=== PATIENT | female | born 1950 | race Caucasian/White ===

== ENCOUNTER 2017-10-18 04:15 | Inpatient (IN) | payer OTHER ==
[~2017-10-18] VITALS: Ht 152.4 cm; Wt 103.9 kg
[~2017-10-18 04:15] MED LIST: CELEBREX200 M1 PO; COUMADIN 5 MG TA5 MG PO; COZAAR50 M1 PO; DOCUSATE SODIU100 MG PO; FLOMAX(MONOGRA0.4 MG PO; FUROSEMIDE40 MG PO; K-DUR 20MEQ TA20 MEQ PO; MECLIZINE HCL25 MG PO; MULTIVITAMIN1 TAB PO; NEURONTIN300 M1 PO; PERCOCET 325 MG1 TA2 PO; TYLENOL TAB 32325 MG PO; ZOFRAN ODT4 MG PO
--- NOTE | 2017-10-18 11:18 | RADIOLOGY REPORT ---
EXAMINATION: XR HIP, RIGHT CLINICAL INFORMATION: Status post right hip replacement COMPARISON: None TECHNIQUE: Two views of the right hip. FINDINGS: Patient is status post right total hip arthroplasty. Hardware components appear well-seated and in anatomic alignment. No acute fracture is seen. Soft tissue gas is noted lateral to the right hip, along with overlying skin gustavo. IMPRESSION: Status post right total hip arthroplasty with expected postoperative changes.
[2017-10-18 11:53] LABS: ABSOLUTE BASOPHIL COUNT 0 /CUMM (0.0-0.2); ABSOLUTE EOSINOPHIL COUNT 0 /CUMM (0.0-0.7); ABSOLUTE GRANULOCYTE CT 11.6 /CUMM (1.4-6.5); ABSOLUTE LYMPH COUNT 0.7 /CUMM (1.2-3.4); ABSOLUTE MONOCYTE COUNT 0.2 /CUMM (0.10-0.60); BASOPHIL % 0 % (0.0-2.0); EOSINOPHIL % 0.1 % (0-5); HEMATOCRIT 31.2 % (37-47); MEAN CORPUSCULAR HGB 29.6 PG (27.0-31.0); MEAN CORPUSCULAR HGB CONC 33.8 G/DL (33.0-37.0); MEAN CORPUSCULAR VOLUME 87.7 FL (81.0-99.0); MEAN PLATELET VOLUME 7.2 FL (7.4-10.4); PLATELET COUNT 299 /CUMM (130-400); RBC DISTRIBUTION WIDTH 13.3 % (11.5-14.5); RED BLOOD CELL CT 3.56 /CUMM (4.20-5.40); WHITE BLOOD CELL COUNT 12.5 /CUMM (4.8-10.8)
--- NOTE | 2017-10-18 12:20 | Cons- Medical ---
Mirela Salgado 10/18/17 1202: General Information and HPI Consulting Request Date of Consult: 10/18/17 Requested By: Nereyda RIVERA,Edgar Batres Reason for Consult: hypoxia Source of Information: family, old records, EMS Exam Limitations: unable to give history, patient's age History of Present Illness: Patient is a 67-year-old woman with a past medical history significant for hypertension, breast cancer s/p right mastectomy, nephrolithiasis, history of bilateral knee replacement, admitted to the hospital for right hip replacement. Patient was in her usual state of health before the surgery, except for exertional shortness of breath. Also she has been having lower extremity swelling for the last couple of years has been on high dose of Lasix prescribed by her primary care physician. No chest discomfort/ palpitations. No recent fevers or infections. No urinary bowel habit complaints. In the operating room she was found to be difficult respiratory distress, desaturated multiple times to 80s. In the PACU , vehicle monitor technician showed ectopy. At the time of evaluation, patient was lying comfortably in the bed saturating around 92% on 3 L denies any shortness of breath/chest discomfort. Vitals on admission: Temperature 90.8, respiratory rate 20, pulse 68, blood pressure 106/62 saturating around 95-97% on 3 L. Pertinent labs on admission: Leukocytosis, with hypovolemia. right hip xray : Status post right total hip arthroplasty with expected postoperative changes. Allergies/Medications Allergies: Coded Allergies: latex (Intermediate, BLISTERS 12/18/15) Home Med List: Celecoxib (Celebrex) 200 MG CAPSULE 1 CAP PO DAILY PAIN (Reported) Enoxaparin Sodium (Lovenox) 40 MG/0.4 ML SYRINGE 0.4 ML SC DAILY ANTICOAGULATION Furosemide 40 MG TABLET 1-2 TAB PO AD DIURETIC (Reported) Gabapentin (Neurontin) 300 MG CAPSULE 1 CAP PO TID PAIN (Reported) Losartan Potassium (Cozaar) 50 MG TABLET 1 TAB PO DAILY BP (Reported) Meclizine HCl 25 MG TABLET 1 TAB PO TIDPRN VERTIGO (Reported) Multivitamin (Multiple Vitamins) 1 EACH TABLET 1 TAB PO DAILY SUPPLEMENT ( Reported) Oxycodone HCl/Acetaminophen (Percocet 5-325 MG Tablet) 5 MG-325 MG TABLET 1-2 TAB PO Q4-6 PRN PAIN POTASSIUM CHLORIDE (K-Dur) 20 MEQ TAB.ER.PRT 1 TAB PO DAILY SUPPLEMENT ( Reported) Review of Systems Review of Systems Constitutional: Denies: diaphoresis, fever, malaise. EENTM: Denies: blurred vision, double vision, visual changes. Cardiovascular: Denies: chest pain, edema, orthopena. Respiratory: Denies: cough, hemoptysis, orthopnea. GI: Denies: abdominal pain, constipation, diarrhea. Genitourinary: Denies: discharge, dysuria, hematuria. Musculoskeletal: Denies: back pain, gout, joint pain. Past History Medical History Renal: ? KIDNEY STONES Musculoskeletal: KNEE REPLACVEMENT Cancer(s): RT MASTECTOMY Surgical History Surgical History: none Psychosocial History Services at Home: None Exam & Diagnostic Data Last 24 Hrs of Vital Signs/I&O Vital Signs Date Time Temp Pulse Resp B/P B/P Pulse O2 O2 Flow FiO2 Mean Ox Delivery Rate 10/19 0648 98.1 69 18 98/52 96 Nasal 0.5L Cannula 10/19 0000 Nasal 0.5L Cannula 10/18 2209 97.5 80 20 120/70 95 10/18 1613 98.0 81 16 118/70 10/18 1600 94 Nasal 0.5L Cannula 10/18 1510 92 Room Air Room Air 10/18 1452 98.0 81 16 118/70 99 10/18 1347 98.0 68 20 106/62 97 Nasal 3.0L Cannula 10/18 1330 97 Nasal 3.0L Cannula Intake & Output 10/19 1600 10/19 0800 10/19 0000 Intake Total 700 1350 Output Total 200 750 Balance 500 600 Intake, IV 600 750 Intake, Oral 100 600 Number 0 0 Bowel Movements Output, Urine 200 750 Physical Exam General Appearance: drowzy Head: atraumatic, normal appearance Eyes: Right: normal appearance, PERRL, EOMI. Ears, Nose, Throat: normal pharynx, normal ENT inspection Neck: normal inspection, supple Respiratory: normal breath sounds, chest non-tender Cardiovascular: regular rate/rhythm, edema Peripheral Pulses: 4+ carotid (R), 4+ carotid (L) Gastrointestinal: normal bowel sounds, soft Rectal: normal exam Back: normal inspection, normal range of motion Extremities: normal inspection, normal range of motion Last 24 Hrs of Labs/Ananth: Laboratory Tests 10/18/17 1140: Sodium Pending, Potassium Pending, Chloride Pending, Carbon Dioxide Pending, Anion Gap Pending, BUN Pending, Creatinine Pending, BUN/Creatinine Ratio Pending , Troponin I Pending, Znf-D-Hssjfavtayb Pept Pending, CBC w Diff MAN DIFF ORDERED, RBC 3.56 L, MCV 87.7, MCH 29.6, RDW 13.3, MPV 7.2 L, Gran % 93.0 H, Lymphocytes % 5.6 L, Monocytes % 1.3 L, Eosinophils % 0.1, Basophils % 0, Absolute Granulocytes 11.6 H, Segmented Neutrophils Pending, Absolute Lymphocytes 0.7 L, Absolute Monocytes 0.2, Absolute Eosinophils 0, Absolute Basophils 0, PUBS MCHC 33.8 Assessment/Plan Assessment/Plan Patient is a 67-year-old woman with a past medical history significant for hypertension, breast cancer s/p right mastectomy, nephrolithiasis, history of bilateral knee replacement, admitted to the hospital for right hip replacement. In the operating room she was found to be difficult respiratory distress, desaturated multiple times to 80s. Temperature 90.8, respiratory rate 20, pulse 68, blood pressure 106/62 saturating around 95-97% on 3 L. Pertinent labs on admission: Leukocytosis, with hypovolemia. right hip xray : Status post right total hip arthroplasty with expected postoperative changes First set of troponin negative, EKG done showed T wave changes/flattening in the anterior leads as compared to the EKG done in August 2017 Problem list: 1. Acute hypoxia (Rule out pulmonary embolism) 2. Hypokalemia 3. Lower extremity edema. 4. Right hip arthritis status post replacement post a day: 0 5. History of hypertension. Plan Acute hypoxia (Rule out pulmonary embolism) * Admitted to telemetry floor * CTA chest to rule out pulmonary embolism. * Obtain pulmonology consult * Do serial troponin EKG to rule out any underlying ACS * Obtain echocardiogram * Obtain cardiology consult 2. Lower extremity edema(r/o CHF ) * Obtain echocardiogram. * Continue lasix. * Watch for any arrhythmias. If patient continues to have multiple episodes of ectopy/PVCs on monitor. 3. Right hip arthritis status post replacement post a day: 0 * Continue management as per surgical team * Adequate pain control. 4. History of hypertension * Continue home medications. 5. Hypokalemia * Repeat and replace electrolytes. DVT prophylaxis: * Subcutaneous Lovenox. Pt is FC. Consult Acknowledgment - Thank you for your consult request. Donnie Parks MD 10/18/170: Assessment/Plan Consult Acknowledgment - Thank you for your consult request. Attending MD Review Statement Attending Statement Attending MD Statement: examined this patient, discuss w/resident/PA/ASSEMBLY ADJUSTER, agreed w/resident/PA/ASSEMBLY ADJUSTER, reviewed EMR data (avail)
[2017-10-18 13:47] VITALS: BP 106/62
[2017-10-18] MEDS ORDERED: PERCOCET 5-3251 EACH PO (13:53)
[2017-10-18] MEDS ORDERED: LOVENOX40 MG/0.1 SC (13:53)
--- NOTE | 2017-10-18 13:58 | Patient Discharge Instructions ---
Discharge Instructions General Discharge Information You were seen/treated for: Right hip pain related to unilateral primary osteoarthritis You had these procedures: Right total hip replacement Watch for these problems: Increasing pain despite the use of pain medication Increasing redness, warmth or swelling Drainage of any type from incision Inability to bear weight on operative leg Persistent nausea and vomiting Fever greater than 101.5 degrees Do not soak the wound: Yes No bath, but you may shower: Yes Other wound care: Please keep wound clean and dry. No ointments or lotions of any type on or near incision at any time. No exceptions. Your dressing will be changed by your nurse on the second day after your surgery. Daily dry dressing changes are recommended each day thereafter. Do not soak your wound in a bath at any time until otherwise indicated by your surgeon. You may shower, please dry wound immediately after shower with a clean towel. Special Instructions: Posterior Hip Precautions: No bending greater than 90 degrees at waist. Do not cross your right leg over your left leg. Do not internally rotate your right leg. Abduction pillow when laying in bed. These precautions are to remain in place until otherwise indicated by Dr. Dawn. Patient should follow-up with cardiology as an outpatient for CRISSY with agitated saline contrast injected via the left antecubital or a cardiac MRI for further assessment of the shunt. Diet Continue normal diet: Yes Recommended Diet: Regular Activity Full Activity/No Limits: No Activity Self Limited: Yes Pounds, do NOT lift more than: 10 Acute Coronary Syndrome Inclusion Criteria At DC or during hospital stay patient has or had the following: ACS DIAGNOSIS No Discharge Core Measures Meds if any: Prescribed or Continued at Discharge Meds if any: NOT Prescribed or Continued at Discharge Congestive Heart Failure Inclusion Criteria At DC or during hospital stay patient has or had the following: CHF DIAGNOSIS No Discharge Core Measures Meds if any: Prescribed or Continued at Discharge Meds if any: NOT Prescribed or Continued at Discharge Cerebrovascular accident Inclusion Criteria At DC or during hospital stay patient has or had the following: CVA/TIA Diagnosis No Discharge Core Measures Meds if any: Prescribed or Continued at Discharge Meds if any: NOT Prescribed or Continued at Discharge Venous thromboembolism Inclusion Criteria VTE Diagnosis No VTE Type NONE VTE Confirmed by (Test) NONE Discharge Core Measures - Per Current guidelines, there needs to be overlap - treatment for the first 5 days of Warfarin therapy. - If discharged on Warfarin prior to 5 days of - overlap therapy, the patient will need to be - assessed for post discharge needs including - *Post discharge parental anticoagulation - *Warfarin and/or parental anticoagulation education - *Follow up date to check INR post discharge At least 5 days overlap therapy as Inpatient No Meds if any: Prescribed or Continued at Discharge Note: Overlap Therapy is Warfarin and Anticoagulant Meds if any: NOT Prescribed or Continued at Discharge
--- NOTE | 2017-10-18 14:00 | Surgical Discharge Summary ---
Visit Information Visit Dates Admission Date: 10/18/17 Discharge Date: 10/21/17 History of Present Illness Chief Complaint: Right hip pain related to unilateral primary osteoarthritis Medical History Renal: ? KIDNEY STONES Musculoskeletal: KNEE REPLACVEMENT Cancer(s): RT MASTECTOMY History of MRSA: No History of VRE: No History of CDIFF: No Influenza Vaccine: 07/23/13 Surgical History Pertinent Surgical History: N Psychosocial History Who Do You Live With? Daughter Services at Home: None What is Your Primary Language? Mauritanian Review of Systems: See H&P Hospital Course Course Attending Physician: Nereyda RIVERA,Edgar Batres Primary Care Physician: Gavin Ramírez MD Hospital Course: Patient was admitted to the hospital for an elective total joint replacement. The intra-operative o2 saturation fluctuated between 77-100, post operatively the patient underwent lab work and imaging which proved to be negative for a fat embolis and a pulmonary embolism. The patient was placed on a telemetry unit for further monitoring post operatively and was evaluated by medical services and pulmonolgy. she was found to have acute blood loss anemia and was transfused 1unit of prbc with appropriate response. From a surgica recovery standpoint, her diet was advanced and tolerated, and the she voided spontaneously. She was evaluated and treated by physical therapy. At the time of hospital discharge, her vital signs were stable, neurovascular status was intact, and her pain was controlled with the use of oral pain medications. Complications: acute blood loss anemia, post op hypoxia Allergies: Coded Allergies: latex (Intermediate, BLISTERS 12/18/15) Disposition Summary Disposition Principal Diagnosis: Right hip unilateral primary osteoarthritis Additional Diagnosis: acute blood loss anemia post op hypoxia Discharge Disposition: SNF Discharge Instructions General Discharge Information Code Status: Full Code Patient's Diet: Regular, advance as tolerated Patient's Activity: WBAT, posterior hip precautions Follow-Up Instructions/Appts: Follow up with Dr. Dawn in 2 weeks from date of surgery follow up with Dr Troncoso for further testing for possible vascular/cardiac shunt Medications at Discharge Discharge Medications: Continue taking these medications: Furosemide (Furosemide) 40 MG TABLET 1-2 Tablet ORAL As Directed Qty = 90 Comments: DOCUMENTED PER CMR DURING PRE-SX INTERVIEW - 2 TABS PO ON MON, WED, FRI 1 TAB PO ON TU, THURS, SAT, SUN LAST GIVEN: 04/25/15 @ 1000 POTASSIUM CHLORIDE (K-Dur) 20 MEQ TAB.ER.PRT 1 Tablet ORAL DAILY Qty = 90 Comments: DOCUMENTED PER CMR DURING PRE-SX INTERVIEW LAST GIVEN: 04/25/15 @ 1000 Multivitamin (Multiple Vitamins) 1 EACH TABLET 1 Tablet ORAL DAILY Comments: DOCUMENTED PER CMR DURING PRE-SX INTERVIEW NOT GIVEN IN HOSPITAL Meclizine HCl (Meclizine HCl) 25 MG TABLET 1 Tablet ORAL THREE TIMES A DAY NEEDED Losartan Potassium (Cozaar) 50 MG TABLET 1 Tablet ORAL DAILY Celecoxib (Celebrex) 200 MG CAPSULE 1 Capsule ORAL DAILY Gabapentin (Neurontin) 300 MG CAPSULE 1 Capsule ORAL THREE TIMES DAILY Start taking the following new medications: Enoxaparin Sodium (Lovenox) 40 MG/0.4 ML SYRINGE 0.4 Milliliters Inject into fatty tissue DAILY Qty = 21 No Refills Oxycodone HCl/Acetaminophen (Percocet 5-325 MG Tablet) 5 MG-325 MG TABLET 1-2 Tablet ORAL EVERY 4-6 HOURS as needed for PAIN Qty = 36 No Refills
--- NOTE | 2017-10-18 14:04 | Admission Core Measures ---
Acute Coronary Syndrome (CM) ACS Core Measures Acute Coronary Syndrome Diagnosis No Congestive Heart Failure (NEW) CHF Core Measures Congestive Heart Failure Diagnosis No Cerebrovascular Accident (NEW) CVA Core Measures CVA/TIA Diagnosis No Venous Thromboembolism VTE Core Bhargav (View Protocol) VTE Risk Factors Surgery No Mechanical VTE Prophylaxis d/t N/A MechProphylax Ordered No VTE Pharm Prophylaxis d/t NA PharmProphylax ordered Problem List As ranked by this Provider includes Assessment & Plan 1. Unilateral primary osteoarthritis, right hip HOME MEDS Home Med List Celecoxib (Celebrex) 200 MG CAPSULE 1 CAP PO DAILY PAIN (Reported) Enoxaparin Sodium (Lovenox) 40 MG/0.4 ML SYRINGE 0.4 ML SC DAILY ANTICOAGULATION Furosemide 40 MG TABLET 1-2 TAB PO AD DIURETIC (Reported) Gabapentin (Neurontin) 300 MG CAPSULE 1 CAP PO TID PAIN (Reported) Losartan Potassium (Cozaar) 50 MG TABLET 1 TAB PO DAILY BP (Reported) Meclizine HCl 25 MG TABLET 1 TAB PO TIDPRN VERTIGO (Reported) Multivitamin (Multiple Vitamins) 1 EACH TABLET 1 TAB PO DAILY SUPPLEMENT ( Reported) Oxycodone HCl/Acetaminophen (Percocet 5-325 MG Tablet) 5 MG-325 MG TABLET 1-2 TAB PO Q4-6 PRN PAIN POTASSIUM CHLORIDE (K-Dur) 20 MEQ TAB.ER.PRT 1 TAB PO DAILY SUPPLEMENT ( Reported)
--- NOTE | 2017-10-18 14:34 | CT SCAN REPORT ---
EXAMINATION: CT ANGIOGRAM OF THE CHEST WITH AND WITHOUT CONTRAST (CT PULMONARY ANGIOGRAM FOR PE) CLINICAL INFORMATION: Presumptive diagnosis of fat embolus. Episodes of desaturation. Per chart: Recent right hip replacement. 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 Status post right mastectomy. COMPARISON: CT the chest on 11/04/2014. TECHNIQUE: Prior to contrast administration, noncontrast localization images were obtained. Subsequently, multidetector volumetric imaging was performed from the thoracic inlet to below the diaphragms following the administration of 95 mL Optiray 350 intravenous contrast. No contrast reaction reported. Sagittal, coronal, and MIP oblique sagittal reformatted images were obtained on the CT workstation, uploaded to PACS, and reviewed. Total exam dose-length product 526 mGy-cm. FINDINGS: QUALITY OF STUDY/CONTRAST BOLUS: Satisfactory PULMONARY ARTERIES: No central or segmental pulmonary emboli. THORACIC AORTA: No aneurysm or dissection. 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 This therefore would be a very small right to left shunt. LUNG: A thick bandlike vertical scar is located in the posterior basal segment of the left lower lobe. Series 201, image 70. There is focal associated pleural thickening at this location. In addition, there is left-sided apical pleural thickening. Series 201, image 53. Scattered areas of mosaic perfusion particularly in the left upper lobe thought to represent small airways disease. PLEURA: No pleural effusion or pneumothorax. MEDIASTINUM: The heart is normal in size and there is no sign of pericardial effusion. Abundant epicardial fat is seen at both cardiophrenic angles and there is abundant fat in the anterior superior mediastinum. No evidence of septal bowing or right heart strain. The patient does have a small hiatal hernia. There is mild circumferential thickening of the esophagus proximal to the hiatal hernia. Clinical correlation with history of GERD is recommended. CHEST WALL/AXILLA: No axillary or internal mammary lymphadenopathy. Multiple right axillary clips are associated with a right mastectomy. Left breast is normal. OSSEOUS STRUCTURES: No acute or suspicious osseous abnormality. UPPER ABDOMEN: Unremarkable. No reflux of contrast into the hepatic veins to suggest elevated right heart pressures. The 2.5 cm in diameter isodense exophytic mass arising from the upper pole of the right kidney has not increased in size. IMPRESSION: 1. No evidence of pulmonary embolism. 2. 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 (Small zoult-yx-fjam shunt). 3. Small airways disease. (Mosaic perfusion). 4. Small hiatal hernia with circumferential thickening of the esophagus. Correlate with symptoms of GERD. VTE: Negative.
[2017-10-18 14:52] VITALS: BP 118/70
--- NOTE | 2017-10-18 15:07 | PN- Orthopedic ---
Subjective Subjective: POSTOP CHECK desats intraoperatively- concern for pulm emboli- CTA negative. Now on 0.5L NC satting 95%. Denies SOB or CP. No hx pulm issues, no use of supplemental o2 prior to surgery. some nausea immediately postop, now resolved. +up via [facility]. no oob yet, no meal yet. some r hip pain, but controlled. Objective Vital Signs and I&Os Vital Signs Date Time Temp Pulse Resp B/P B/P Pulse O2 O2 Flow FiO2 Mean Ox Delivery Rate 10/18 1452 98.0 81 16 118/70 99 10/18 1347 98.0 68 20 106/62 97 Nasal 3.0L Cannula 95% on 0.5L NC Physical Exam: gen- nad card- s1s2 rrr pulm- ctab, no crackles, no wheeze abd- soft nt ext-r hip dressing cdi, ttp at incision, hip adduction pillow in place, feet warm, gross motor/sensation intact, calves soft nt bl, alps on Results Last 48 Hours of Labs: Laboratory Tests 10/18 1140 Chemistry Sodium (137 - 145 mmol/L) 141 Potassium (3.5 - 5.1 mmol/L) 3.3 L Chloride (98 - 107 mmol/L) 104 Carbon Dioxide (22 - 30 mmol/L) 26 Anion Gap (5 - 16) 11 BUN (7 - 17 mg/dL) 20 H Creatinine (0.5 - 1.0 mg/dL) 0.8 Estimated GFR (>60 ml/min) > 60 BUN/Creatinine Ratio (7 - 25 %) 25.0 Troponin I (< 0.11 ng/ml) < 0.01 Xom-P-Pcxizewlpen Pept (<125 pg/mL) 77.3 Hematology CBC w Diff MAN DIFF ORDERED WBC (4.8 - 10.8 /CUMM) 12.5 H RBC (4.20 - 5.40 /CUMM) 3.56 L Hgb (12.0 - 16.0 G/DL) 10.6 L Hct (37 - 47 %) 31.2 L MCV (81.0 - 99.0 FL) 87.7 MCH (27.0 - 31.0 PG) 29.6 RDW (11.5 - 14.5 %) 13.3 Plt Count (130 - 400 /CUMM) 299 MPV (7.4 - 10.4 FL) 7.2 L Gran % (42.2 - 75.2 %) 93.0 H Lymphocytes % (20.5 - 51.1 %) 5.6 L Monocytes % (1.7 - 9.3 %) 1.3 L Eosinophils % (0 - 5 %) 0.1 Basophils % (0.0 - 2.0 %) 0 Absolute Granulocytes (1.4 - 6.5 /CUMM) 11.6 H Segmented Neutrophils (42.2 - 75.2 %) 79 H Band Neutrophils (0.0 - 5.0 %) 11 H Absolute Lymphocytes (1.2 - 3.4 /CUMM) 0.7 L Lymphocytes (20.5 - 51.1 %) 7 L Monocytes (1.7 - 9.3 %) 2 Absolute Monocytes (0.10 - 0.60 /CUMM) 0.2 Absolute Eosinophils (0.0 - 0.7 /CUMM) 0 Basophils (0.0 - 2.0 %) 1 Absolute Basophils (0.0 - 0.2 /CUMM) 0 Platelet Estimate (ADEQUATE) ADEQUATE Hypochromic-Microcytic 2+ Anisocytosis 1+ PUBS MCHC (33.0 - 37.0 G/DL) 33.8 Recent Imaging Studies: EXAM TYPE: CAT - CTA CHEST-PULMONARY EMBOLISM EXAMINATION: CT ANGIOGRAM OF THE CHEST WITH AND WITHOUT CONTRAST (CT PULMONARY ANGIOGRAM FOR PE) CLINICAL INFORMATION: Presumptive diagnosis of fat embolus. Episodes of desaturation. Per chart: Recent right hip replacement. 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 Status post right mastectomy. COMPARISON: CT the chest on 11/04/2014. TECHNIQUE: Prior to contrast administration, noncontrast localization images were obtained. Subsequently, multidetector volumetric imaging was performed from the thoracic inlet to below the diaphragms following the administration of 95 mL Optiray 350 intravenous contrast. No contrast reaction reported. Sagittal, coronal, and MIP oblique sagittal reformatted images were obtained on the CT workstation, uploaded to PACS, and reviewed. Total exam dose-length product 526 mGy-cm. FINDINGS: QUALITY OF STUDY/CONTRAST BOLUS: Satisfactory PULMONARY ARTERIES: No central or segmental pulmonary emboli. THORACIC AORTA: No aneurysm or dissection. 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 This therefore would be a very small right to left shunt. LUNG: A thick bandlike vertical scar is located in the posterior basal segment of the left lower lobe. Series 201, image 70. There is focal associated pleural thickening at this location. In addition, there is left-sided apical pleural thickening. Series 201, image 53. Scattered areas of mosaic perfusion particularly in the left upper lobe thought to represent small airways disease. PLEURA: No pleural effusion or pneumothorax. MEDIASTINUM: The heart is normal in size and there is no sign of pericardial effusion. Abundant epicardial fat is seen at both cardiophrenic angles and there is abundant fat in the anterior superior mediastinum. No evidence of septal bowing or right heart strain. The patient does have a small hiatal hernia. There is mild circumferential thickening of the esophagus proximal to the hiatal hernia. Clinical correlation with history of GERD is recommended. CHEST WALL/AXILLA: No axillary or internal mammary lymphadenopathy. Multiple right axillary clips are associated with a right mastectomy. Left breast is normal. OSSEOUS STRUCTURES: No acute or suspicious osseous abnormality. UPPER ABDOMEN: Unremarkable. No reflux of contrast into the hepatic veins to suggest elevated right heart pressures. The 2.5 cm in diameter isodense exophytic mass arising from the upper pole of the right kidney has not increased in size. IMPRESSION: 1. No evidence of pulmonary embolism. 2. 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 (Small desca-eo-bytf shunt). 3. Small airways disease. (Mosaic perfusion). 4. Small hiatal hernia with circumferential thickening of the esophagus. Correlate with symptoms of GERD. VTE: Negative. Assessment/Plan Assessment/Plan A- POD0 sp R GRACE, with desaturations intraoperatively without evidence of PE on CTA, with hypokalemia- repleted, currently stable P- titrate o2 WBAT, PT lovenox 40 daily alps reg diet as tolerated home meds appreciate medicine input await pulm input Core Measures Venous Thromboembolism VTE Risk Factors Surgery No Mechanical VTE Prophylaxis d/t N/A MechProphylax Ordered No VTE Pharm Prophylaxis d/t NA PharmProphylax ordered
--- NOTE | 2017-10-18 15:19 | Cons- Pulmonary ---
General Information and HPI Consulting Request Date of Consult: 10/18/17 Requested By: Louise Reason for Consult: Transient hypoxic respiratory failure History of Present Illness: Patient is 67-year-old woman admitted for elective right hip surgery intraoperatively had fluctuating oxygen saturations. Patient was able to be extubated and is awake alert denies shortness of breath chest pain cough or sputum. She reports having had chronic mild dyspnea on exertion prior to her surgery. Postoperatively she transiently required 3 L nasal oxygen is been tapered down to 1 L. CTA was done which suggests possible small airways disease as well as a vascular anomaly creating a right to left shunt. Patient is presently comfortable Allergies/Medications Allergies: Coded Allergies: latex (Intermediate, BLISTERS 12/18/15) Home Med List: Celecoxib (Celebrex) 200 MG CAPSULE 1 CAP PO DAILY PAIN (Reported) Enoxaparin Sodium (Lovenox) 40 MG/0.4 ML SYRINGE 0.4 ML SC DAILY ANTICOAGULATION Furosemide 40 MG TABLET 1-2 TAB PO AD DIURETIC (Reported) Gabapentin (Neurontin) 300 MG CAPSULE 1 CAP PO TID PAIN (Reported) Losartan Potassium (Cozaar) 50 MG TABLET 1 TAB PO DAILY BP (Reported) Meclizine HCl 25 MG TABLET 1 TAB PO TIDPRN VERTIGO (Reported) Multivitamin (Multiple Vitamins) 1 EACH TABLET 1 TAB PO DAILY SUPPLEMENT ( Reported) Oxycodone HCl/Acetaminophen (Percocet 5-325 MG Tablet) 5 MG-325 MG TABLET 1-2 TAB PO Q4-6 PRN PAIN POTASSIUM CHLORIDE (K-Dur) 20 MEQ TAB.ER.PRT 1 TAB PO DAILY SUPPLEMENT ( Reported) Review of Systems Review of Systems Constitutional: Denies: chills, fever. Cardiovascular: Reports: edema. Denies: chest pain. Respiratory: Denies: cough, orthopnea, short of breath, sputum production, wheezing. Past History Medical History Blood Transfusion Hx: No Neurological: vertigo EENT: tonsil infections Gastrointestinal: NONE Hepatic: NONE Renal: ? 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 Home Services at Home: None Smoking Status: Never Smoked Exam & Diagnostic Data Last 24 Hrs of Vital Signs/I&O Vital Signs Date Time Temp Pulse Resp B/P B/P Pulse O2 O2 Flow FiO2 Mean Ox Delivery Rate 10/18 1510 92 Room Air Room Air 10/18 1452 98.0 81 16 118/70 99 10/18 1347 98.0 68 20 106/62 97 Nasal 3.0L Cannula 10/18 1330 97 Nasal 3.0L Cannula Intake & Output 10/18 1600 10/18 0800 10/18 0000 Intake Total Output Total Balance Patient 229 lb Weight Weight Reported by Patient Measurement Method Oxygen saturation 2 L was 99% patient has been titrated to 1 L HEENT exam shows no jugular distention exam for chest shows clear lung chand are no crackles or wheezes cardiac exam shows regular S1 and S2 without murmurs abdomen is soft nontender. There is no calf tenderness Last 48 Hrs of Labs/Ananth: Laboratory Tests 10/18/17 1140: Anion Gap 11, Estimated GFR > 60, BUN/Creatinine Ratio 25.0, Troponin I < 0.01, [id number] Pept 77.3, CBC w Diff MAN DIFF ORDERED, RBC 3.56 L, MCV 87.7, MCH 29.6, RDW 13.3, MPV 7.2 L, Gran % 93.0 H, Lymphocytes % 5.6 L, Monocytes % 1.3 L, Eosinophils % 0.1, Basophils % 0, Absolute Granulocytes 11.6 H, Segmented Neutrophils 79 H, Band Neutrophils 11 H, Absolute Lymphocytes 0.7 L , Lymphocytes 7 L, Monocytes 2, Absolute Monocytes 0.2, Absolute Eosinophils 0, Basophils 1, Absolute Basophils 0, Platelet Estimate ADEQUATE, Hypochromic- Microcytic 2+, Anisocytosis 1+, PUBS MCHC 33.8 Assessment/Plan Impression/Plan: 67-year-old woman who has a little way of past respiratory history developed transient desaturation during surgery for elective hip replacement. CTA suggested the possibility of a [id number] shunt. Other considerations are aspiration, fat emboli, underlying small airways disease, though CT scan shows no parenchymal abnormalities indicative of aspiration or capillary leak syndrome secondary to fat emboli Recommendations: Recommend cardiology evaluation and echo to better understand significance of reported right to left shunt. Taper FiO2 his saturations allow. Mobilize as per orthopedics. Patient should have pulmonary function tests to better understand her complaints of chronic dyspnea and suggestion of small airways disease on CAT scan Consult Acknowledgment - Thank you for your consult request.
--- NOTE | 2017-10-18 21:13 | Cons- Cardiology ---
General Information and HPI Consulting Request Date of Consult: 10/18/17 Requested By: Edgar Dawn MD Reason for Consult: postoperative hypoxia; abnormal CT chest Source of Information: patient, old records Exam Limitations: no limitations History of Present Illness: the patient is a 67-year-old female. Her past medical history is significant for hypertension, breast cancer, status post right mastectomy, kidney stones, bilateral knee replacement, etc. The patient was in the hospital for a right hip replacement. She was cleared for the surgery by her primary care physician Dr. Lee. The patient underwent hip replacement surgery earlier today. She did have some exertional shortness of breath prior to the surgery. She has also had some issues with lower extremity edema. She denies any other cardiac history. in the operating room, the patient was found to have some respiratory distress. She desaturated multiple times to the 80s. In the PACU, the monitor reportedly showed some ectopy. Subsequent leak, the patient improved but again had an episode of desaturation. At the present time, the patient is on minimal supplemental oxygen and denies any respiratory distress. She does note that she continues to feel somewhat short of breath with movement. No other cardiac symptoms present. A CT of the chest was performed which showed no evidence of pulmonary embolus. It did show a small persistent left sided SVC which reportedly connected to the left superior pulmonary vein or the left atrial appendage. I was asked to see the patient for further evaluation of her cardiac status. Allergies/Medications Allergies: Coded Allergies: latex (Intermediate, BLISTERS 12/18/15) Home Med List: Celecoxib (Celebrex) 200 MG CAPSULE 1 CAP PO DAILY PAIN (Reported) Enoxaparin Sodium (Lovenox) 40 MG/0.4 ML SYRINGE 0.4 ML SC DAILY ANTICOAGULATION Furosemide 40 MG TABLET 1-2 TAB PO AD DIURETIC (Reported) Gabapentin (Neurontin) 300 MG CAPSULE 1 CAP PO TID PAIN (Reported) Losartan Potassium (Cozaar) 50 MG TABLET 1 TAB PO DAILY BP (Reported) Meclizine HCl 25 MG TABLET 1 TAB PO TIDPRN VERTIGO (Reported) Multivitamin (Multiple Vitamins) 1 EACH TABLET 1 TAB PO DAILY SUPPLEMENT ( Reported) Oxycodone HCl/Acetaminophen (Percocet 5-325 MG Tablet) 5 MG-325 MG TABLET 1-2 TAB PO Q4-6 PRN PAIN POTASSIUM CHLORIDE (K-Dur) 20 MEQ TAB.ER.PRT 1 TAB PO DAILY SUPPLEMENT ( Reported) Current Medications: Current Medications Sig/Kennedy Start time Last Medication Dose Route Stop Time Status Admin Acetaminophen 0 .STK-MED ONE 10/18 0700 DC PO Acetaminophen 650 MG ONCE 10/18 0000 DC PO 10/18 235 Celecoxib 200 MG DAILY 10/18 1000 AC 10/18 PO 1614 Celecoxib 400 MG ONCE 10/18 0000 DC PO 10/18 2359 Dexamethasone 4 MG .STK-MED ONE 10/18 724 DC IM 10/18 07 Dexamethasone 0 .STK-MED ONE 10/18 0659 DC .ROUTE Dexamethasone 10 MG ONCE 10/18 0000 DC IV 10/18 2359 Dextrose/Lactated 1,000 ML Q13H 10/18 1345 AC 10/18 Ringer's IV 1345 Docusate Sodium 100 MG DAILY NEEDED PRN 10/18 1345 AC PO Enoxaparin Sodium 40 MG DAILY 10/19 1000 AC SC Fentanyl Citrate 100 MCG .STK-MED ONE 10/18 731 DC IM 10/18 0732 Fentanyl Citrate 100 MCG .STK-MED ONE 10/18 723 DC IM 10/18 0724 Furosemide 80 MG DAILY 10/19 1000 AC PO Gabapentin 300 MG AT BEDTIME 10/18 2200 AC PO Gabapentin 0 .STK-MED ONE 10/18 07 DC PO Gabapentin 300 MG ONCE 10/18 0000 DC PO 10/18 235 Hydromorphone HCl 2 MG .STK-MED ONE 10/18 1005 DC IM 10/18 1006 Hydromorphone HCl 2 MG .STK-MED ONE 10/18 731 DC IM 10/18 0732 Losartan Potassium 50 MG DAILY 10/18 1000 AC 10/18 PO 1613 Meclizine HCl 25 MG TID PRN 10/18 1000 AC PO Midazolam HCl 2 MG .STK-MED ONE 10/18 723 DC IM 10/18 0724 Morphine Sulfate 2 MG Q3P PRN 10/18 1345 AC IV Morphine Sulfate 4 MG Q3P PRN 10/18 1345 AC IV Ondansetron HCl 4 MG Q6P PRN 10/18 1345 AC IV Oxycodone HCl 0 .STK-MED ONE 10/18 0659 DC PO Oxycodone HCl 10 MG ONCE 10/18 0000 DC PO 10/18 2359 Oxycodone/ 1 TAB Q4P PRN 10/18 1345 AC Acetaminophen PO Oxycodone/ 2 TAB Q4P PRN 10/18 1345 AC Acetaminophen PO Polyethylene Glycol 17 GM DAILY NEEDED PRN 10/18 1345 AC PO Potassium Chloride 40 MEQ ONCE ONE 10/18 1345 DC 10/18 PO 10/18 1346 1613 Potassium Chloride 20 MEQ DAILY 10/18 1000 AC 10/18 PO 1725 Scopolamine HBr 0 .STK-MED ONE 10/18 0659 DC TOP Scopolamine HBr 1 PAT ONCE 10/18 0000 DC TOP 10/18 2359 Senna/Docusate Sodium 2 TAB AT BEDTIME NEED.. 10/18 1345 AC PO Vancomycin HCl 1,500 MG ONCE ONE 10/18 1900 DC 10/18 Sodium Chloride 250 ML IV 10/18 1959 1847 Vancomycin HCl 1,500 MG ONCE 10/18 0000 DC Sodium Chloride 500 ML IV 10/18 235 Vancomycin HCl 1,500 MG ONCE 10/18 0000 DC Sodium Chloride 250 ML IV 10/18 2359 Past History Medical History Blood Transfusion Hx: No Neurological: vertigo EENT: tonsil infections Gastrointestinal: NONE Hepatic: NONE Renal: ? 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 Home Services at Home: None Smoking Status: Never Smoked Exam & Diagnostic Data Vital Signs and I&O Vital Signs Date Time Temp Pulse Resp B/P B/P Pulse O2 O2 Flow FiO2 Mean Ox Delivery Rate 10/18 1613 98.0 81 16 118/70 10/18 1600 94 Nasal 0.5L Cannula 10/18 1510 92 Room Air Room Air 10/18 1452 98.0 81 16 118/70 99 10/18 1347 98.0 68 20 106/62 97 Nasal 3.0L Cannula 10/18 1330 97 Nasal 3.0L Cannula Intake & Output 10/18 1600 10/18 0800 10/18 0000 10/17 1600 10/17 0800 10/17 0000 Intake Total Output Total Balance Patient 229 lb Weight Weight Reported by Patient Measurement Method Labs/Ananth Results: Laboratory Tests 10/18 10/18 1810 1140 Chemistry Sodium (137 - 145 mmol/L) 141 Potassium (3.5 - 5.1 mmol/L) 4.1 3.3 L Chloride (98 - 107 mmol/L) 104 Carbon Dioxide (22 - 30 mmol/L) 26 Anion Gap (5 - 16) 11 BUN (7 - 17 mg/dL) 20 H Creatinine (0.5 - 1.0 mg/dL) 0.8 Estimated GFR (>60 ml/min) > 60 BUN/Creatinine Ratio (7 - 25 %) 25.0 Troponin I (< 0.11 ng/ml) < 0.01 < 0.01 [id number] Pept (<125 pg/mL) 77.3 Hematology CBC w Diff MAN DIFF ORDERED WBC (4.8 - 10.8 /CUMM) 12.5 H RBC (4.20 - 5.40 /CUMM) 3.56 L Hgb (12.0 - 16.0 G/DL) 10.6 L Hct (37 - 47 %) 31.2 L MCV (81.0 - 99.0 FL) 87.7 MCH (27.0 - 31.0 PG) 29.6 RDW (11.5 - 14.5 %) 13.3 Plt Count (130 - 400 /CUMM) 299 MPV (7.4 - 10.4 FL) 7.2 L Gran % (42.2 - 75.2 %) 93.0 H Lymphocytes % (20.5 - 51.1 %) 5.6 L Monocytes % (1.7 - 9.3 %) 1.3 L Eosinophils % (0 - 5 %) 0.1 Basophils % (0.0 - 2.0 %) 0 Absolute Granulocytes (1.4 - 6.5 /CUMM) 11.6 H Segmented Neutrophils (42.2 - 75.2 %) 79 H Band Neutrophils (0.0 - 5.0 %) 11 H Absolute Lymphocytes (1.2 - 3.4 /CUMM) 0.7 L Lymphocytes (20.5 - 51.1 %) 7 L Monocytes (1.7 - 9.3 %) 2 Absolute Monocytes (0.10 - 0.60 /CUMM) 0.2 Absolute Eosinophils (0.0 - 0.7 /CUMM) 0 Basophils (0.0 - 2.0 %) 1 Absolute Basophils (0.0 - 0.2 /CUMM) 0 Platelet Estimate (ADEQUATE) ADEQUATE Hypochromic-Microcytic 2+ Anisocytosis 1+ PUBS MCHC (33.0 - 37.0 G/DL) 33.8 Diagnostic Data EKG Results normal sinus rhythm with anterior STT flattening in leads V1 through V3. Other Results CTA chest: PULMONARY ARTERIES: No central or segmental pulmonary emboli. THORACIC AORTA: No aneurysm or dissection. 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 This therefore would be a very small right to left shunt. LUNG: A thick bandlike vertical scar is located in the posterior basal segment of the left lower lobe. Series 201, image 70. There is focal associated pleural thickening at this location. In addition, there is left-sided apical pleural thickening. Series 201, image 53. Scattered areas of mosaic perfusion particularly in the left upper lobe thought to represent small airways disease. PLEURA: No pleural effusion or pneumothorax. MEDIASTINUM: The heart is normal in size and there is no sign of pericardial effusion. Abundant epicardial fat is seen at both cardiophrenic angles and there is abundant fat in the anterior superior mediastinum. No evidence of septal bowing or right heart strain. The patient does have a small hiatal hernia. There is mild circumferential thickening of the esophagus proximal to the hiatal hernia. Clinical correlation with history of GERD is recommended. CHEST WALL/AXILLA: No axillary or internal mammary lymphadenopathy. Multiple right axillary clips are associated with a right mastectomy. Left breast is normal. OSSEOUS STRUCTURES: No acute or suspicious osseous abnormality. UPPER ABDOMEN: Unremarkable. No reflux of contrast into the hepatic veins to suggest elevated right heart pressures. The 2.5 cm in diameter isodense exophytic mass arising from the upper pole of the right kidney has not increased in size. IMPRESSION: 1. No evidence of pulmonary embolism. 2. 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 (Small [id number] shunt). 3. Small airways disease. (Mosaic perfusion). 4. Small hiatal hernia with circumferential thickening of the esophagus. Correlate with symptoms of GERD. Assessment/Plan Assessment/Plan Assessment: 1. episodes of Acute hypoxia of unclear etiology 2. Abnormal chest CT with small persistent left sided SVC connecting to left upper pulmonary vein or left atrial appendage 3. Hypokalemia 4. Lower extremity edema. 5. Right hip arthritis status post replacement post a day: 0 6. History of hypertension. 7. Mild leukocytosis 8. Mild normocytic anemia Medications: -Monitor on telemetry for 24 hours -Serial troponins -ECG tonight and again in the morning -Echocardiogram to assess right heart anatomy, possible [id number] shunt, reported persistent small left sided SVC, etc. -Out of bed as tolerated -Pulmonary input noted -Further plans after the above. Consult Acknowledgment - Thank you for your consult request.
[2017-10-18 22:09] VITALS: BP 120/70
[2017-10-19 06:48] VITALS: BP 98/52
--- NOTE | 2017-10-19 07:24 | PN- Pulmonary ---
Subjective HPI/Critical Care Issues: Patient feels well without shortness of breath oxygen saturation saturations improved Objective Current Medications: Current Medications Sig/Kennedy Start time Last Medication Dose Route Stop Time Status Admin Acetaminophen 650 MG ONCE 10/18 0000 DC PO 10/18 2359 Celecoxib 200 MG DAILY 10/18 1000 AC 10/18 PO 1614 Celecoxib 400 MG ONCE 10/18 0000 DC PO 10/18 2359 Dexamethasone 4 MG .STK-MED ONE 10/18 0724 DC IM 10/18 0725 Dexamethasone 10 MG ONCE 10/18 0000 DC IV 10/18 2359 Dextrose/Lactated 1,000 ML Q13H 10/18 1345 AC 10/19 Ringer's IV 0013 Docusate Sodium 100 MG DAILY NEEDED PRN 10/18 1345 AC PO Enoxaparin Sodium 40 MG DAILY 10/19 1000 AC SC Fentanyl Citrate 100 MCG .STK-MED ONE 10/18 0731 DC IM 10/18 0732 Fentanyl Citrate 100 MCG .STK-MED ONE 10/18 0723 DC IM 10/18 0724 Furosemide 80 MG DAILY 10/19 1000 AC PO Gabapentin 300 MG AT BEDTIME 10/18 2200 AC 10/18 PO 2135 Gabapentin 300 MG ONCE 10/18 0000 DC PO 10/18 2359 Hydromorphone HCl 2 MG .STK-MED ONE 10/18 1005 DC IM 10/18 1006 Hydromorphone HCl 2 MG .STK-MED ONE 10/18 0731 DC IM 10/18 0732 Losartan Potassium 50 MG DAILY 10/18 1000 AC 10/18 PO 1613 Meclizine HCl 25 MG TID PRN 10/18 1000 AC PO Midazolam HCl 2 MG .STK-MED ONE 10/18 0723 DC IM 10/18 0724 Morphine Sulfate 2 MG Q3P PRN 10/18 1345 AC IV Morphine Sulfate 4 MG Q3P PRN 10/18 1345 AC IV Ondansetron HCl 4 MG Q6P PRN 10/18 1345 AC IV Oxycodone HCl 10 MG ONCE 10/18 0000 DC PO 10/18 2359 Oxycodone/ 1 TAB Q4P PRN 10/18 1345 AC Acetaminophen PO Oxycodone/ 2 TAB Q4P PRN 10/18 1345 AC 10/19 Acetaminophen PO 0422 Polyethylene Glycol 17 GM DAILY NEEDED PRN 10/18 1345 AC PO Potassium Chloride 40 MEQ ONCE ONE 10/18 1345 DC 10/18 PO 10/18 1346 1613 Potassium Chloride 20 MEQ DAILY 10/18 1000 AC 10/18 PO 1725 Scopolamine HBr 1 PAT ONCE 10/18 0000 DC TOP 10/18 2359 Senna/Docusate Sodium 2 TAB AT BEDTIME NEED.. 10/18 1345 AC PO Vancomycin HCl 1,500 MG ONCE ONE 10/18 1900 DC 10/18 Sodium Chloride 250 ML IV 10/18 1959 1847 Vancomycin HCl 1,500 MG ONCE 10/18 0000 DC Sodium Chloride 250 ML IV 10/18 2359 Vital Signs & I&O Last 24 Hrs of Vitals and I&O: Vital Signs Date Time Temp Pulse Resp B/P B/P Pulse O2 O2 Flow FiO2 Mean Ox Delivery Rate 10/19 0648 98.1 69 18 98/52 96 Nasal 0.5L Cannula 10/19 0000 Nasal 0.5L Cannula 10/18 2209 97.5 80 20 120/70 95 10/18 1613 98.0 81 16 118/70 10/18 1600 94 Nasal 0.5L Cannula 10/18 1510 92 Room Air Room Air 10/18 1452 98.0 81 16 118/70 99 10/18 1347 98.0 68 20 106/62 97 Nasal 3.0L Cannula 10/18 1330 97 Nasal 3.0L Cannula Intake & Output 10/19 0800 10/19 0000 10/18 1600 Intake Total 700 1350 Output Total 200 750 Balance 500 600 Intake, IV 600 750 Intake, Oral 100 600 Number 0 0 Bowel Movements Output, Urine 200 750 Patient 229 lb Weight Weight Reported by Patient Measurement Method Since saturation 0.5 L 96% exam for chest shows clear lung chand cardiac exam shows regular S1 and S2 without murmurs Impression/Plan Impression/Plan Impression/Plan: 67-year-old woman who has a little way of past respiratory history developed transient desaturation during surgery for elective hip replacement. CTA suggested the possibility of a [id number] shunt. Other considerations are aspiration, fat emboli, underlying small airways disease, though CT scan shows no parenchymal abnormalities indicative of aspiration or capillary leak syndrome secondary to fat emboli patient is asymptomatic oxygen saturations are improved Recommendations: Recommend cardiology evaluation and echo to better understand significance of reported right to left shunt. Taper FiO2 his saturations allow. Mobilize as per orthopedics. Patient should have pulmonary function tests to better understand her complaints of chronic dyspnea and suggestion of small airways disease on CAT scan discontinue oxygen and assess room air sats at rest and with exertion await cardiac ultrasound
--- NOTE | 2017-10-19 08:04 | PN- Medicine Consult ---
See Addendum Assessment/Plan Assessment/Plan Assessment: Patient is a 67-year-old woman with a past medical history significant for hypertension, breast cancer s/p right mastectomy, nephrolithiasis, history of bilateral knee replacement, admitted to the hospital for right hip replacement. In the operating room she was found to be difficult respiratory distress, desaturated multiple times to 80s.In the PACU , front desk monitor showed ectopy. CTA chest to rule out pulmonary embolism however showed small persistent left sided SVC connecting to left upper pulmonary vein or left atrial appendage. First set of troponin negative, EKG done showed T wave changes/flattening in the anterior leads as compared to the EKG done in August 2017. Subsequence sets of troponin remained negative, without significant EKG changes. Problem list 1. Acute hypoxia(etiology?) 2. ACS ruled out 3. Lower extremity edema with borderline blood pressure 4. Hypokalemia improved 5. Right hip arthritis status post replacement post a day: [address] with small persistent left sided SVC connecting to left upper pulmonary vein or left atrial appendage 7. Reactive leukocytosis with normocytic anemia Plan: 1. Acute hypoxia(etiology?) * Continue to monitor patient on telemetry floor * CTA chest to rule out any underlying pulmonary embolism. * Follow-up pulmonology recommendations. 2. ACS ruled out * Serial troponins and EKG insignificant * Echocardiogram pending. * Follow further cardiology recommendations. 3. Lower extremity edema with borderline blood pressure * Hold Lasix for systolic blood pressure less than 90 and diastolic blood pressure less than 60. 4. Hypokalemia * improved 5. Right hip arthritis status post replacement post a day: 1 * Continue management as per surgery * Adequate pain control * Physical therapy. 6. Abnormal chest CT with small persistent left sided SVC connecting to left upper pulmonary vein or left atrial appendage * Follow-up pulmonology recommendations. 7. Reactive leukocytosis with normocytic anemia * Continue to monitor Problem List: 1. Unilateral primary osteoarthritis, right hip Subjective Subjective: Patient is seen and examined this morning, seems better vitals are stable except for borderline blood pressure. Denies any shortness of breath or chest discomfort or palpitations. Reports numbness around the surgical site. Pain well controlled with Percocet. Review of Systems Constitutional: Denies: diaphoresis, fever, malaise. EENTM: Denies: blurred vision, double vision, visual changes. Cardiovascular: Denies: chest pain, edema. Respiratory: Denies: cough, hemoptysis, orthopnea. Gastrointestinal: Denies: abdominal pain, bloating, constipation, diarrhea. Genitourinary: Denies: discharge, dysuria, frequency. Musculoskeletal: Denies: back pain, gout, joint pain, joint swelling. Skin: Denies: cysts, change in hair/nails, dryness. Objective Last 24 Hrs of Vital Signs/I&O Vital Signs Date Time Temp Pulse Resp B/P B/P Pulse O2 O2 Flow FiO2 Mean Ox Delivery Rate 10/19 0648 98.1 69 18 98/52 96 Nasal 0.5L Cannula 10/19 0000 Nasal 0.5L Cannula 10/18 2209 97.5 80 20 120/70 95 10/18 1613 98.0 81 16 118/70 10/18 1600 94 Nasal 0.5L Cannula 10/18 1510 92 Room Air Room Air 10/18 1452 98.0 81 16 118/70 99 10/18 1347 98.0 68 20 106/62 97 Nasal 3.0L Cannula 10/18 1330 97 Nasal 3.0L Cannula Intake & Output 10/19 1600 10/19 0800 10/19 0000 Intake Total 700 1350 Output Total 200 750 Balance 500 600 Intake, IV 600 750 Intake, Oral 100 600 Number 0 0 Bowel Movements Output, Urine 200 750 Physical Exam General Appearance: well developed/nourished, no apparent distress, alert Head: atraumatic, normal appearance, active bleeding Ears, Nose, Throat: normal pharynx, normal ENT inspection Neck: normal inspection, supple Cardiovascular: regular rate/rhythm, edema, gallop Respiratory: normal breath sounds, chest non-tender Abdomen: normal bowel sounds, soft, non-tender Rectal: normal exam, normal rectal tone, heme negative stool Back: normal inspection Extremities: normal inspection, normal capillary refill Current Medications: Current Medications Sig/Kennedy Start time Last Medication Dose Route Stop Time Status Admin Acetaminophen 650 MG ONCE 10/18 0000 DC PO 10/18 2359 Celecoxib 200 MG DAILY 10/18 1000 AC 10/18 PO 1614 Celecoxib 400 MG ONCE 10/18 0000 DC PO 10/18 235 Dexamethasone 10 MG ONCE 10/18 0000 DC IV 10/18 235 Dextrose/Lactated 1,000 ML Q13H 10/18 1345 AC 10/19 Ringer's IV 0013 Docusate Sodium 100 MG DAILY NEEDED PRN 10/18 1345 AC PO Enoxaparin Sodium 40 MG DAILY 10/19 1000 AC SC Furosemide 80 MG DAILY 10/19 1000 AC PO Gabapentin 300 MG AT BEDTIME 10/18 2200 AC 10/18 PO 2135 Gabapentin 300 MG ONCE 10/18 0000 DC PO 10/18 2359 Hydromorphone HCl 2 MG .STK-MED ONE 10/18 1005 DC IM 10/18 1006 Losartan Potassium 50 MG DAILY 10/18 1000 AC 10/18 PO 1613 Meclizine HCl 25 MG TID PRN 10/18 1000 AC PO Morphine Sulfate 2 MG Q3P PRN 10/18 1345 AC IV Morphine Sulfate 4 MG Q3P PRN 10/18 1345 AC IV Ondansetron HCl 4 MG Q6P PRN 10/18 1345 AC IV Oxycodone HCl 10 MG ONCE 10/18 0000 DC PO 10/18 2359 Oxycodone/ 1 TAB Q4P PRN 10/18 1345 AC Acetaminophen PO Oxycodone/ 2 TAB Q4P PRN 10/18 1345 AC 10/19 Acetaminophen PO 0422 Polyethylene Glycol 17 GM DAILY NEEDED PRN 10/18 1345 AC PO Potassium Chloride 40 MEQ ONCE ONE 10/18 1345 DC 10/18 PO 10/18 1346 1613 Potassium Chloride 20 MEQ DAILY 10/18 1000 AC 10/18 PO 1725 Scopolamine HBr 1 PAT ONCE 10/18 0000 DC TOP 10/18 2359 Senna/Docusate Sodium 2 TAB AT BEDTIME NEED.. 10/18 1345 AC PO Vancomycin HCl 1,500 MG ONCE ONE 10/18 1900 DC 10/18 Sodium Chloride 250 ML IV 10/18 1959 1847 Vancomycin HCl 1,500 MG ONCE 10/18 0000 DC Sodium Chloride 250 ML IV 10/18 2359 Results Last 24 Hrs Lab/Ananth Results: Laboratory Tests 10/19/17 0640: Sodium Pending, Potassium Pending, Chloride Pending, Carbon Dioxide Pending, Anion Gap Pending, BUN Pending, Creatinine Pending, BUN/Creatinine Ratio Pending , CBC w Diff Pending, WBC Pending, RBC Pending, Hgb Pending, Hct Pending, MCV Pending, MCH Pending, RDW Pending, Plt Count Pending, MPV Pending, PUBS MCHC Pending 10/19/17 0010: Troponin I < 0.01 10/18/17 1810: Troponin I < 0.01 10/18/17 1140: Anion Gap 11, Estimated GFR > 60, BUN/Creatinine Ratio 25.0, Troponin I < 0.01, Dvk-L-Zpulzikzfew Pept 77.3, CBC w Diff MAN DIFF ORDERED, RBC 3.56 L, MCV 87.7, MCH 29.6, RDW 13.3, MPV 7.2 L, Gran % 93.0 H, Lymphocytes % 5.6 L, Monocytes % 1.3 L, Eosinophils % 0.1, Basophils % 0, Absolute Granulocytes 11.6 H, Segmented Neutrophils 79 H, Band Neutrophils 11 H, Absolute Lymphocytes 0.7 L , Lymphocytes 7 L, Monocytes 2, Absolute Monocytes 0.2, Absolute Eosinophils 0, Basophils 1, Absolute Basophils 0, Platelet Estimate ADEQUATE, Hypochromic- Microcytic 2+, Anisocytosis 1+, PUBS MCHC 33.8 Microbiology 10/18 0900 URINE ROUT: Urine Culture - RECD
[2017-10-19 08:37] LABS: ABSOLUTE BASOPHIL COUNT 0 /CUMM (0.0-0.2); ABSOLUTE EOSINOPHIL COUNT 0 /CUMM (0.0-0.7); ABSOLUTE GRANULOCYTE CT 7.8 /CUMM (1.4-6.5); ABSOLUTE LYMPH COUNT 1.5 /CUMM (1.2-3.4); BASOPHIL % 0.2 % (0.0-2.0); MEAN CORPUSCULAR HGB CONC 33.8 G/DL (33.0-37.0); MEAN PLATELET VOLUME 8.1 FL (7.4-10.4)
[2017-10-19 08:59] LABS: ABSOLUTE MONOCYTE COUNT 0.9 /CUMM (0.10-0.60); EOSINOPHIL % 0.2 % (0-5); GRANULOCYTE % 75.8 % (42.2-75.2); MEAN CORPUSCULAR HGB 29.7 PG (27.0-31.0); MEAN CORPUSCULAR VOLUME 87.9 FL (81.0-99.0); PLATELET COUNT 241 /CUMM (130-400); RBC DISTRIBUTION WIDTH 13.8 % (11.5-14.5); WHITE BLOOD CELL COUNT 10.3 /CUMM (4.8-10.8)
[2017-10-19 09:30] LABS: HEMATOCRIT 23.8 % (37-47)
--- NOTE | 2017-10-19 11:36 | PN- Cardiology ---
Subjective Subjective: Feeling better. Shortness of breath improving. No chest pain. No palpitations. No diaphoresis. Objective Vital Signs and I&Os Vital Signs Date Time Temp Pulse Resp B/P B/P Pulse O2 O2 Flow FiO2 Mean Ox Delivery Rate 10/19 0800 Nasal 0.5L Cannula 10/19 0648 98.1 69 18 98/52 96 Nasal 0.5L Cannula 10/19 0000 Nasal 0.5L Cannula 10/18 2209 97.5 80 20 120/70 95 10/18 1613 98.0 81 16 118/70 10/18 1600 94 Nasal 0.5L Cannula 10/18 1510 92 Room Air Room Air 10/18 1452 98.0 81 16 118/70 99 10/18 1347 98.0 68 20 106/62 97 Nasal 3.0L Cannula 10/18 1330 97 Nasal 3.0L Cannula Intake & Output 10/19 1600 10/19 0800 10/19 0000 10/18 1600 10/18 0800 10/18 0000 Intake Total 700 1350 Output Total 200 750 Balance 500 600 Intake, IV 600 750 Intake, Oral 100 600 Number 0 0 Bowel Movements Output, Urine 200 750 Patient 229 lb Weight Weight Reported by Patient Measurement Method Physical Exam: Gen: NAD HEENT: normal Lungs: clear to auscultation, normal resp. effort Heart: RRR, S1, S2, no murmurs Abdomen: Soft, nontender, no masses Extremities: No clubbing, cyanosis, or edema. Neuro: Alert and oriented x 3, cranial nerves intact Current Medications: Current Medications Sig/Kennedy Start time Last Medication Dose Route Stop Time Status Admin Acetaminophen 650 MG ONCE 10/18 0000 DC PO 10/18 2359 Celecoxib 200 MG DAILY 10/18 1000 AC 10/19 PO 0939 Celecoxib 400 MG ONCE 10/18 0000 DC PO 10/18 235 Dexamethasone 10 MG ONCE 10/18 0000 DC IV 10/18 2359 Dextrose/Lactated 1,000 ML Q13H 10/18 1345 AC 10/19 Ringer's IV 0013 Docusate Sodium 100 MG DAILY NEEDED PRN 10/18 1345 AC PO Enoxaparin Sodium 40 MG DAILY 10/19 1000 AC 10/19 SC 0939 Furosemide 80 MG DAILY 10/19 1000 AC PO Gabapentin 300 MG AT BEDTIME 10/18 2200 AC 10/18 PO 2135 Gabapentin 300 MG ONCE 10/18 0000 DC PO 10/18 2359 Losartan Potassium 50 MG DAILY 10/18 1000 AC 10/18 PO 1613 Meclizine HCl 25 MG TID PRN 10/18 1000 AC PO Morphine Sulfate 2 MG Q3P PRN 10/18 1345 AC IV Morphine Sulfate 4 MG Q3P PRN 10/18 1345 AC IV Ondansetron HCl 4 MG Q6P PRN 10/18 1345 AC IV Oxycodone HCl 10 MG ONCE 10/18 0000 DC PO 10/18 2359 Oxycodone/ 1 TAB Q4P PRN 10/18 1345 AC 10/19 Acetaminophen PO 0943 Oxycodone/ 2 TAB Q4P PRN 10/18 1345 AC 10/19 Acetaminophen PO 0422 Polyethylene Glycol 17 GM DAILY NEEDED PRN 10/18 1345 AC PO Potassium Chloride 40 MEQ ONCE ONE 10/18 1345 DC 10/18 PO 10/18 1346 1613 Potassium Chloride 20 MEQ DAILY 10/18 1000 AC 10/18 PO 1725 Scopolamine HBr 1 PAT ONCE 10/18 0000 DC TOP 10/18 2359 Senna/Docusate Sodium 2 TAB AT BEDTIME NEED.. 10/18 1345 AC PO Vancomycin HCl 1,500 MG ONCE ONE 10/18 1900 DC 10/18 Sodium Chloride 250 ML IV 10/18 1959 1847 Vancomycin HCl 1,500 MG ONCE 10/18 0000 DC Sodium Chloride 250 ML IV 10/18 2359 Results Last 48 Hrs of Labs/Mics: Laboratory Tests 10/19/17 0640: Anion Gap 8, Estimated GFR 55 L, BUN/Creatinine Ratio 20.0, CBC w Diff NO MAN DIFF REQ, RBC 2.70 L, MCV 87.9, MCH 29.7, RDW 13.8, MPV 8.1, Gran % 75.8 H, Lymphocytes % 14.6 L, Monocytes % 9.2, Eosinophils % 0.2, Basophils % 0.2, Absolute Granulocytes 7.8 H, Absolute Lymphocytes 1.5, Absolute Monocytes 0.9 H, Absolute Eosinophils 0, Absolute Basophils 0, PUBS MCHC 33.8 10/19/17 0010: Troponin I < 0.01 10/18/17 1810: Troponin I < 0.01 10/18/17 1140: Anion Gap 11, Estimated GFR > 60, BUN/Creatinine Ratio 25.0, Troponin I < 0.01, Klt-J-Cecvebtkueh Pept 77.3, CBC w Diff MAN DIFF ORDERED, RBC 3.56 L, MCV 87.7, MCH 29.6, RDW 13.3, MPV 7.2 L, Gran % 93.0 H, Lymphocytes % 5.6 L, Monocytes % 1.3 L, Eosinophils % 0.1, Basophils % 0, Absolute Granulocytes 11.6 H, Segmented Neutrophils 79 H, Band Neutrophils 11 H, Absolute Lymphocytes 0.7 L , Lymphocytes 7 L, Monocytes 2, Absolute Monocytes 0.2, Absolute Eosinophils 0, Basophils 1, Absolute Basophils 0, Platelet Estimate ADEQUATE, Hypochromic- Microcytic 2+, Anisocytosis 1+, PUBS MCHC 33.8 Recent Imaging Studies: CTA chest: 1. No evidence of pulmonary embolism. 2. 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 (Small qaygh-ym-rnbc shunt). 3. Small airways disease. (Mosaic perfusion). 4. Small hiatal hernia with circumferential thickening of the esophagus. Correlate with symptoms of GERD. Assessment/Plan Assessment/Plan Assessment: 1. Episodes of Acute hypoxia of unclear etiology 2. Abnormal chest CT with small persistent left sided SVC connecting to left upper pulmonary vein or left atrial appendage 3. Hypokalemia 4. Lower extremity edema. 5. Right hip arthritis status post replacement post a day: 0 6. History of hypertension. 7. Mild leukocytosis 8. Mild normocytic anemia Plan: * Given the current meds. * Echocardiogram pending. * Follow up with Dr. Rodríguez as outpatient. Continue telemetry? No
--- NOTE | 2017-10-19 11:49 | PN- Orthopedic ---
See Addendum Subjective Subjective: Patient reports numbness in the medial thigh regions, improved since yesterday. She reports postop pain which is well controlled. She is tolerating a diet. She reports dizziness and nausea with ambulation. She states her maxwell was removed this morning, has not voided yet. She denies c/p, difficutly breathing or sob. She offers no other complaints. Objective Vital Signs and I&Os Vital Signs Date Time Temp Pulse Resp B/P B/P Pulse O2 O2 Flow FiO2 Mean Ox Delivery Rate 10/19 0800 Nasal 0.5L Cannula 10/19 0648 98.1 69 18 98/52 96 Nasal 0.5L Cannula 10/19 0000 Nasal 0.5L Cannula 10/18 2209 97.5 80 20 120/70 95 10/18 1613 98.0 81 16 118/70 10/18 1600 94 Nasal 0.5L Cannula 10/18 1510 92 Room Air Room Air 10/18 1452 98.0 81 16 118/70 99 10/18 1347 98.0 68 20 106/62 97 Nasal 3.0L Cannula 10/18 1330 97 Nasal 3.0L Cannula Intake & Output 10/19 1600 10/19 0800 10/19 0000 10/18 1600 10/18 0800 10/18 0000 Intake Total 700 1350 Output Total 200 750 Balance 500 600 Intake, IV 600 750 Intake, Oral 100 600 Number 0 0 Bowel Movements Output, Urine 200 750 Patient 229 lb Weight Weight Reported by Patient Measurement Method Physical Exam: Gen: Resting comfortably in a chair awake preston lert in NAD Cardiac: S1S2 noted Lungs: CTAB Abd: Soft, nondistended, nontender Ext: R hip dressing c/d/i, moves all extremities, decreased motor and sensation in RLE, no significant edema or calf tenderness B/L Current Medications: Current Medications Sig/Kennedy Start time Last Medication Dose Route Stop Time Status Admin Acetaminophen 650 MG ONCE 10/18 0000 DC PO 10/18 2359 Celecoxib 200 MG DAILY 10/18 1000 AC 10/19 PO 0939 Celecoxib 400 MG ONCE 10/18 0000 DC PO 10/18 235 Dexamethasone 10 MG ONCE 10/18 0000 DC IV 10/18 2359 Dextrose/Lactated 1,000 ML Q13H 10/18 1345 AC 10/19 Ringer's IV 0013 Docusate Sodium 100 MG DAILY NEEDED PRN 10/18 1345 AC PO Enoxaparin Sodium 40 MG DAILY 10/19 1000 AC 10/19 SC 0939 Furosemide 80 MG DAILY 10/19 1000 AC PO Gabapentin 300 MG AT BEDTIME 10/18 2200 AC 10/18 PO 2135 Gabapentin 300 MG ONCE 10/18 0000 DC PO 10/18 2359 Losartan Potassium 50 MG DAILY 10/18 1000 AC 10/18 PO 1613 Meclizine HCl 25 MG TID PRN 10/18 1000 AC PO Morphine Sulfate 2 MG Q3P PRN 10/18 1345 AC IV Morphine Sulfate 4 MG Q3P PRN 10/18 1345 AC IV Ondansetron HCl 4 MG Q6P PRN 10/18 1345 AC IV Oxycodone HCl 10 MG ONCE 10/18 0000 DC PO 10/18 2359 Oxycodone/ 1 TAB Q4P PRN 10/18 1345 AC 10/19 Acetaminophen PO 0943 Oxycodone/ 2 TAB Q4P PRN 10/18 1345 AC 10/19 Acetaminophen PO 0422 Polyethylene Glycol 17 GM DAILY NEEDED PRN 10/18 1345 AC PO Potassium Chloride 40 MEQ ONCE ONE 10/18 1345 DC 10/18 PO 10/18 1346 1613 Potassium Chloride 20 MEQ DAILY 10/18 1000 AC 10/18 PO 1725 Scopolamine HBr 1 PAT ONCE 10/18 0000 DC TOP 10/18 2359 Senna/Docusate Sodium 2 TAB AT BEDTIME NEED.. 10/18 1345 AC PO Vancomycin HCl 1,500 MG ONCE ONE 10/18 1900 DC 10/18 Sodium Chloride 250 ML IV 10/18 1959 1847 Vancomycin HCl 1,500 MG ONCE 10/18 0000 DC Sodium Chloride 250 ML IV 10/18 2359 Results Last 48 Hours of Labs: Laboratory Tests 10/19 10/19 10/18 0640 0010 1810 Chemistry Sodium (137 - 145 mmol/L) 138 Potassium (3.5 - 5.1 mmol/L) 4.1 4.1 Chloride (98 - 107 mmol/L) 102 Carbon Dioxide (22 - 30 mmol/L) 28 Anion Gap (5 - 16) 8 BUN (7 - 17 mg/dL) 20 H Creatinine (0.5 - 1.0 mg/dL) 1.0 Estimated GFR (>60 ml/min) 55 L BUN/Creatinine Ratio (7 - 25 %) 20.0 Troponin I (< 0.11 ng/ml) < 0.01 < 0.01 Hematology CBC w Diff NO MAN DIFF REQ WBC (4.8 - 10.8 /CUMM) 10.3 RBC (4.20 - 5.40 /CUMM) 2.70 L Hgb (12.0 - 16.0 G/DL) 8.0 L Hct (37 - 47 %) 23.8 L MCV (81.0 - 99.0 FL) 87.9 MCH (27.0 - 31.0 PG) 29.7 RDW (11.5 - 14.5 %) 13.8 Plt Count (130 - 400 /CUMM) 241 MPV (7.4 - 10.4 FL) 8.1 Gran % (42.2 - 75.2 %) 75.8 H Lymphocytes % (20.5 - 51.1 %) 14.6 L Monocytes % (1.7 - 9.3 %) 9.2 Eosinophils % (0 - 5 %) 0.2 Basophils % (0.0 - 2.0 %) 0.2 Absolute Granulocytes (1.4 - 6.5 /CUMM) 7.8 H Absolute Lymphocytes (1.2 - 3.4 /CUMM) 1.5 Absolute Monocytes (0.10 - 0.60 /CUMM) 0.9 H Absolute Eosinophils (0.0 - 0.7 /CUMM) 0 Absolute Basophils (0.0 - 0.2 /CUMM) 0 PUBS MCHC (33.0 - 37.0 G/DL) 33.8 10/18 1140 Chemistry Sodium (137 - 145 mmol/L) 141 Potassium (3.5 - 5.1 mmol/L) 3.3 L Chloride (98 - 107 mmol/L) 104 Carbon Dioxide (22 - 30 mmol/L) 26 Anion Gap (5 - 16) 11 BUN (7 - 17 mg/dL) 20 H Creatinine (0.5 - 1.0 mg/dL) 0.8 Estimated GFR (>60 ml/min) > 60 BUN/Creatinine Ratio (7 - 25 %) 25.0 Troponin I (< 0.11 ng/ml) < 0.01 [id number]-Xwgucwprrwz Pept (<125 pg/mL) 77.3 Hematology CBC w Diff MAN DIFF ORDERED WBC (4.8 - 10.8 /CUMM) 12.5 H RBC (4.20 - 5.40 /CUMM) 3.56 L Hgb (12.0 - 16.0 G/DL) 10.6 L Hct (37 - 47 %) 31.2 L MCV (81.0 - 99.0 FL) 87.7 MCH (27.0 - 31.0 PG) 29.6 RDW (11.5 - 14.5 %) 13.3 Plt Count (130 - 400 /CUMM) 299 MPV (7.4 - 10.4 FL) 7.2 L Gran % (42.2 - 75.2 %) 93.0 H Lymphocytes % (20.5 - 51.1 %) 5.6 L Monocytes % (1.7 - 9.3 %) 1.3 L Eosinophils % (0 - 5 %) 0.1 Basophils % (0.0 - 2.0 %) 0 Absolute Granulocytes (1.4 - 6.5 /CUMM) 11.6 H Segmented Neutrophils (42.2 - 75.2 %) 79 H Band Neutrophils (0.0 - 5.0 %) 11 H Absolute Lymphocytes (1.2 - 3.4 /CUMM) 0.7 L Lymphocytes (20.5 - 51.1 %) 7 L Monocytes (1.7 - 9.3 %) 2 Absolute Monocytes (0.10 - 0.60 /CUMM) 0.2 Absolute Eosinophils (0.0 - 0.7 /CUMM) 0 Basophils (0.0 - 2.0 %) 1 Absolute Basophils (0.0 - 0.2 /CUMM) 0 Platelet Estimate (ADEQUATE) ADEQUATE Hypochromic-Microcytic 2+ Anisocytosis 1+ PUBS MCHC (33.0 - 37.0 G/DL) 33.8 Assessment/Plan Assessment/Plan This is a 67 year-old female POD 1 s/p R THR with acute hypoxia intraoperatively , CTA revealed a congenital anomaly, a small esrxq-pt-tstr shunt without evidence of PE. Hypokalemia resolved. Oliguira and hypotenion noted today Cont reg diet NS 500 cc fluid bolus Cont pain regimen Cont PT, wbat F/u echo Titrate O2 Order pulm fxn test DVT ppx - alps, lovenox 40 daily Home meds on board Appreicate medicine/cardiologys involvement Monitor H&H Repeat labs tomorrow Will d/w Dr. Dawn Core Measures Venous Thromboembolism VTE Risk Factors Surgery No Mechanical VTE Prophylaxis d/t N/A MechProphylax Ordered No VTE Pharm Prophylaxis d/t NA PharmProphylax ordered
[2017-10-19 11:50] VITALS: BP 98/60
--- NOTE | 2017-10-19 12:21 | Operative Report ---
Operative/Inv Procedure Report Surgery Date: 10/18/17 Name of Procedure: Right total hip arthroplasty Pre-Operative Diagnosis: Primary osteoarthritis right hip Post-Operative Diagnosis: Same Estimated Blood Loss: scant (200) Surgeon/Pharmacy Specialist: Nereyda RIVERA,Edgar BUSTOS Anesthesia: general endotracheal tube IV Fluids: See anesthesia record Implants: Fanwood Accolade 2 femoral stem size 5, Sukhdeep size 58 acetabular shell Trident Drains: None Specimens: Right femoral head to pathology Complications: None Condition: Stable Operative Indication: Patient is a 67-year-old female with severe osteoarthritis of the right hip. She failed conservative treatment with anti-inflammatory medications. She was indicated for right total hip arthroplasty. A skilled set of hands was necessary provided by physician dietetic assistant Colin Morel weighted with retraction limb positioning and component assembly throughout the case. Operative/Procedure Note Note: Once informed consent was obtained and the correct limb was identified the patient was brought to the operating room placed on the table in supine position. After administration of general endotracheal anesthesia patient placed in a left lateral decubitus position on the operating room table with an axillary roll in place and all bony prominences well-padded. The right lower extremity was prepped and draped in usual sterile fashion. To begin the procedure standard incision made for the superior approach to the right hip. Sharp dissection was carried down to the skin and subcutaneous tissue. The tip of the greater trochanter was identified and the fascia of the gluteus memo was incised sharply with a #10 blade. The gluteus memo fibers were bluntly dissected at their junction of the bipennate fibers. A retractor was then placed deep to the gluteus medius muscle belly. A second retractor was placed around the femoral neck. This allowed exposure of the piriformis tendon which was released from its insertion and tagged for later repair. Once the piriformis had been released sciatic nerve was identified and protected. A retractor was then placed deep to the gluteus and minimus muscle belly and the superior hip capsule was exposed. Eyes Performed and the Capsule Was Reflected Posteriorly and Tagged for Later Repair. Hip Was Then Dislocated. Femoral Neck Cut Was Made 1 Fingerbreadth above the Lesser Trochanter and the Femoral Head Was Passed off As Specimen. An Anterior Acetabular Retractor Was Placed and Inferior Acetabular Retractors Were Placed to Provide Exposure for of the Acetabulum. Pulmonology Removed from Acetabulum. The Labrum of the Hip Was Then Removed As Well. Acetabular Osteophytes Were Removed with Rongeurs and Osteotomes. We Then Began Reaming with a Size 46 Reamer. Reaming Was Then Carried out Sequentially up to a Size [id number] Reamer. A 58 Trial Acetabular Shell Was Placed into the Pelvis and Found to Be a Good Fit. The Acetabulum Was Pulse Lavaged and a Size 58 Fanwood Trident Acetabular Shell Was Opened and Placed in a Press-Fit Fashion into the Pelvis. Excellent Fit Was Obtained. The Liner for the Cup Was Opened and Locked into Place. Attention Was Then Turned to the Femoral Portion of the Procedure. The Femur Was Internally Rotated by the Physician Pharmacy Specialist for Positioning Purposes. A Box Osteotome Was Used To Open up the Femoral Canal Laterally and the Femoral Canal Was Then Opened Distally with a Reamer by Hand. We Then Sequentially Broached up to a Size 5 Broach with the Accolade 2 Broaches. The Size 5 Broach Was Found to Be in Excellent Fit and a Trial Reduction Was Done with 127 Neck Angle and a Standard Neck Length and a 36 Mm Head. The hip was reduced without problem and the hip was taken through a range of motion. It was found to be stable in 90 of flexion and 30 of internal rotation and 20 of adduction. The hip was redislocated and the components removed. The femoral canal was pulse lavaged and a size 5 Accolade 2 press-fit stem was opened and placed down the femoral canal with an excellent press-fit obtained. A trial reduction was done again and we decided on going with a +2.5 neck length for leg length purposes the hip was again stable through a full range of motion. 36 mm head was opened and placed onto the femoral stem and the hip was relocated. The incision and wound was pulse lavaged. The capsule and piriformis tendon were repaired back to the greater trochanter through drill holes. The fascia was then closed with a running #1 looped PDS suture. The deep tissues were closed #1 Vicryl interrupted sutures in the subcutaneous tissues closed with 2-0 Vicryl interrupted sutures. The skin was closed gustavo and sterile dressing was applied. The patient was awakened taken recovery in stable condition.
--- NOTE | 2017-10-19 14:25 | ECHOCARDIOGRAM REPORT ---
SAMANTHA MURRAY Age: 67 : 1950 Gender: F Exam Date: 10/18/2017 20:01 Exam Location: [address] [place] [address] Ht (in): Wt (lb): BSA: BP: / 229 Ordering Physician: Dejah Tolbert PA Referring Physician: Melissa Rodríguez MD Technologist: Damari Boston [facility] Room Number: [id number] Indications: STRUCTURAL HEART DISEASE Rhythm: Sinus Technical Quality: , Fair, Technically difficult study FINDINGS Left Ventricle Normal size left ventricle. No obvious regional wall motion abnormalities. Normal left ventricular ejection fraction estimated at 55-60%. Right Ventricle Right ventricle at upper limits of normal. Right Atrium Left Atrium Mild left atrial dilatation. Mitral Valve Mitral valve thickened. Trace mitral regurgitation. Aortic Valve Trileaflet aortic valve. Diffuse thickening (sclerosis) of the aortic valve cusps without reduced excursion. No aortic stenosis. No aortic regurgitation. Tricuspid Valve Tricuspid valve not well visualized, grossly normal. Pulmonic Valve Structurally normal pulmonic valve. Trace pulmonic regurgitation. Pericardium Minimal pericardial effusion (normal variant). Great Vessels Normal size aortic root and proximal ascending aorta. CONCLUSIONS 1. THis was a technically difficult study. 2. MIld aortic sclerosis is present with no valvular stenosis or insufficiency. 3. Mitral leaflet thickening is present with minimal mitral insufficiency and mild left atrial enlargement. 4. A physiologic pericardial effusion is present. 5. The left ventricular chamber size and systolic function appear normal with no resting wall motion abnormalities. 6. The right heart chambers are upper normal in size with minimal pulmonic insufficiency present. The RV systolic pressure was not accurately assessed. 7. The persistent small left sided SVC noted on the CTA chest was not visualized on this examination. In addition, there were no anatomic findings present to suggest the possibility of a significant shunt. A followup echocardiogram or CRISSY with agitated saline contrast injected via the left antecubital or a cardiac MRI would be useful to better assess for any significant right to left shunt at the level of the left superior pulmonary vein or left atrial appendage as suggested by the CT. Melissa Rodríguez M.D. (Electronically Signed) Final Date: 19 October 2017 14:25 MEASUREMENTS (Male / Female) Normal Values 2D ECHO LV Diastolic Diameter PLAX 4.3 cm 4.2 - 5.9 / 3.9 - 5.3 cm LV Systolic Diameter PLAX 2.6 cm 2.1 - 4.0 cm LV Fractional Shortening PLAX 39.5 % 25 - 46 % LV Ejection Fraction 2D Teich 70.4 % IVS Diastolic Thickness 1.1 cm LVPW Diastolic Thickness 1.1 cm LV Relative Wall Thickness 0.5 RV Internal Dim ED PLAX 2.6 cm 1.9 - 3.8 cm LVOT Diameter 2.1 cm Aortic Root Diameter 3.1 cm LA Systolic Diameter LX 4.0 cm 3.0 - 4.0 / 2.7 - 3.8 cm LA Volume 35.0 cm 18 - 58 / 22 - 52 cm Ascending Aorta Diameter 3.4 cm DOPPLER AV Peak Velocity 153.0 cm/s AV Peak Gradient 9.4 mmHg AV Mean Velocity 108.0 cm/s AV Mean Gradient 5.0 mmHg AV Velocity Time Integral 29.0 cm LVOT Peak Velocity 135.0 cm/s LVOT Peak Gradient 7.3 mmHg LVOT Mean Velocity 83.7 cm/s LVOT Mean Gradient 3.0 mmHg LVOT Velocity Time Integral 25.6 cm LVOT Stroke Volume 88.7 cm AV Area Cont Eq vti 3.1 cm AV Area Cont Eq pk 3.1 cm MV Peak Velocity 102.0 cm/s MV Peak Gradient 4.2 mmHg MV Mean Velocity 67.7 cm/s MV Mean Gradient 2.0 mmHg Mitral E Point Velocity 73.5 cm/s Mitral A Point Velocity 83.9 cm/s Mitral E to A Ratio 0.9 MV PHT Velocity 98.2 cm/s MV Deceleration Boyle 388.0 cm/s MV Pressure Half Time 75.9 ms MV Area PHT 2.9 cm MV Deceleration Time 248.0 ms TR Peak Velocity 138.0 cm/s TR Peak Gradient 7.6 mmHg Right Atrial Pressure 5.0 mmHg Pulmonary Artery Systolic Pressu 12.6 mmHg Right Ventricular Systolic Press 12.6 mmHg PV Peak Velocity 126.0 cm/s PV Peak Gradient 6.4 mmHg PV Mean Velocity 88.2 cm/s PV Mean Gradient 4.0 mmHg PV Velocity Time Integral 28.0 cm LV E' Lateral Velocity 12.0 cm/s Mitral E to LV E' Lateral Ratio 6.1 LV E' Septal Velocity 6.9 cm/s Mitral E to LV E' Septal Ratio 10.7
[2017-10-19 14:31] VITALS: BP 98/60
[2017-10-19 23:01] VITALS: BP 96/56
[2017-10-20 06:50] VITALS: BP 106/58
--- NOTE | 2017-10-20 08:03 | PN- Pulmonary ---
Subjective HPI/Critical Care Issues: Patient feels well denies shortness of breath or chest pain. Unfortunately echo was done without contrast Objective Current Medications: Current Medications Sig/Kennedy Start time Last Medication Dose Route Stop Time Status Admin Celecoxib 200 MG DAILY 10/18 1000 AC 10/19 PO 0939 Dextrose/Lactated 1,000 ML Q13H 10/18 1345 AC 10/19 Ringer's IV 2000 Docusate Sodium 100 MG DAILY NEEDED PRN 10/18 1345 AC PO Enoxaparin Sodium 40 MG DAILY 10/19 1000 AC 10/19 SC 0939 Furosemide 20 MG ONCE ONE 10/19 1500 DC 10/19 PO 10/19 1501 1500 Furosemide 80 MG DAILY 10/19 1000 AC PO Gabapentin 300 MG AT BEDTIME 10/18 2200 AC 10/19 PO 2144 Losartan Potassium 50 MG DAILY 10/18 1000 AC 10/18 PO 1613 Meclizine HCl 25 MG TID PRN 10/18 1000 AC PO Morphine Sulfate 2 MG Q3P PRN 10/18 1345 AC IV Morphine Sulfate 4 MG Q3P PRN 10/18 1345 AC IV Ondansetron HCl 4 MG Q6P PRN 10/18 1345 AC IV Oxycodone/ 1 TAB Q4P PRN 10/18 1345 AC 10/19 Acetaminophen PO 0943 Oxycodone/ 2 TAB Q4P PRN 10/18 1345 AC 10/19 Acetaminophen PO 2150 Polyethylene Glycol 17 GM DAILY NEEDED PRN 10/18 1345 AC PO Potassium Chloride 20 MEQ DAILY 10/18 1000 AC 10/19 PO 1500 Senna/Docusate Sodium 2 TAB AT BEDTIME NEED.. 10/18 1345 AC PO Sodium Chloride 500 ML BOLUS ONE 10/19 1200 DC 10/19 IV 10/19 1259 1204 Vital Signs & I&O Last 24 Hrs of Vitals and I&O: Vital Signs Date Time Temp Pulse Resp B/P B/P Pulse O2 O2 Flow FiO2 Mean Ox Delivery Rate 10/20 0650 98.2 71 18 106/58 94 Nasal Cannula 10/20 0000 Nasal 0.5L Cannula 10/19 2301 100.0 88 16 96/56 93 Nasal Cannula 10/19 1600 Nasal 0.5L Cannula 10/19 1500 78 98/60 10/19 1431 98.5 78 18 98/60 94 Nasal 0.5L Cannula 10/19 1150 98.4 74 18 98/60 97 10/19 1147 Nasal 0.5L Cannula Intake & Output 10/20 1600 10/20 0800 10/20 0000 Intake Total 600 800 Output Total 350 975 Balance 250 -175 Intake, IV 600 Intake, Oral 800 Output, Urine 350 975 Oxygen saturation half liter 94% exam for chest shows somewhat diminished breath sounds at the bases there are no wheezes or crackles cardiac exam shows regular S1 and S2 without murmurs Impression/Plan Impression/Plan Impression/Plan: 67-year-old woman who has a little way of past respiratory history developed transient desaturation during surgery for elective hip replacement. CTA suggested the possibility of a [id number] shunt. Other considerations are aspiration, fat emboli, underlying small airways disease, though CT scan shows no parenchymal abnormalities indicative of aspiration or capillary leak syndrome secondary to fat emboli patient's oxygenation is improved. Cardiac echo will need to be repeated with bubble study Recommendations: Patient will need repeat cardiac ultrasound with bubble study. DC 02 and assess room air oxygen saturation at rest and with exertion. Patient should have outpatient pulmonary function testing
[2017-10-20 08:34] LABS: ABSOLUTE BASOPHIL COUNT 0.1 /CUMM (0.0-0.2); ABSOLUTE EOSINOPHIL COUNT 0.2 /CUMM (0.0-0.7); ABSOLUTE GRANULOCYTE CT 5.3 /CUMM (1.4-6.5); ABSOLUTE LYMPH COUNT 1.6 /CUMM (1.2-3.4); ABSOLUTE MONOCYTE COUNT 0.7 /CUMM (0.10-0.60); BASOPHIL % 0.6 % (0.0-2.0); GRANULOCYTE % 67.5 % (42.2-75.2); HEMATOCRIT 23.2 % (37-47); MEAN CORPUSCULAR HGB 29.7 PG (27.0-31.0); MEAN CORPUSCULAR HGB CONC 33.6 G/DL (33.0-37.0); MEAN CORPUSCULAR VOLUME 88.2 FL (81.0-99.0); MEAN PLATELET VOLUME 7.7 FL (7.4-10.4); PLATELET COUNT 223 /CUMM (130-400); RBC DISTRIBUTION WIDTH 13.5 % (11.5-14.5); RED BLOOD CELL CT 2.63 /CUMM (4.20-5.40); WHITE BLOOD CELL COUNT 7.8 /CUMM (4.8-10.8)
--- NOTE | 2017-10-20 09:10 | PN- Medicine Consult ---
Mirela Salgado 10/20/17 0904: Assessment/Plan Assessment/Plan Assessment: Patient is a 67-year-old woman with a past medical history significant for hypertension, breast cancer s/p right mastectomy, nephrolithiasis, history of bilateral knee replacement, admitted to the hospital for right hip replacement. In the operating room she was found to be difficult respiratory distress, desaturated multiple times to 80s.In the PACU , vehicle monitor technician showed ectopy. CTA chest to rule out pulmonary embolism however showed small persistent left sided SVC connecting to left upper pulmonary vein or left atrial appendage. First set of troponin negative, EKG done showed T wave changes/flattening in the anterior leads as compared to the EKG done in August 2017. Subsequence sets of troponin remained negative, without significant EKG changes. Problem list 1. Acute hypoxia(etiology?) 2. ACS ruled out 3. Lower extremity edema with borderline blood pressure 4. Hypokalemia improved 5. Right hip arthritis status post replacement post a day: [address] with small persistent left sided SVC connecting to left upper pulmonary vein or left atrial appendage 7. Reactive leukocytosis with normocytic anemia Plan: 1. Acute hypoxia(etiology?) * Continue to monitor patient on telemetry floor * CTA chest ruled out pulmonary embolism, however showed small persistent left sided SVC connecting to left upper pulmonary vein or left atrial appendage. * Follow-up pulmonology recommendations. 2. ACS ruled out * Serial troponins and EKG insignificant * Echocardiogram showed Normal left ventricular ejection fraction estimated at 55-60% with physiological pericardial effusion and persistent small left sided SVC noted on the CTA chest was not visualized on this examination. In addition, there were no anatomic findings present to suggest the possibility of a significant shunt. * Follow further cardiology recommendations. * Patient should follow-up with cardiology as an outpatient for CRISSY with agitated saline contrast injected via the left antecubital or a cardiac MRI for further assessment of the shunt. 3. Lower extremity edema with borderline blood pressure * Hold Lasix for systolic blood pressure less than 90 and diastolic blood pressure less than 60. 4. Hypokalemia * improved 5. Right hip arthritis status post replacement post a day: 3 * Continue management as per surgery * Adequate pain control * Physical therapy. 6. Abnormal chest CT with small persistent left sided SVC connecting to left upper pulmonary vein or left atrial appendage * Follow-up pulmonology recommendations. 7. Reactive leukocytosis with normocytic anemia * Leukocytosis improved. * H&H dropped(likely due to surgery), continue to monitor. Problem List: 1. Unilateral primary osteoarthritis, right hip 2. History of total knee arthroplasty 3. Hypoxia Subjective Subjective: . Review of Systems Constitutional: Denies: fever. EENTM: Denies: blurred vision, double vision, visual changes. Cardiovascular: Denies: chest pain. Respiratory: Denies: cough, hemoptysis, orthopnea. Gastrointestinal: Denies: abdominal pain, bloating, constipation. Genitourinary: Denies: discharge, dysuria, frequency. Musculoskeletal: Denies: back pain, gout. Skin: Denies: cysts, change in skin color, change in hair/nails. Objective Last 24 Hrs of Vital Signs/I&O Vital Signs Date Time Temp Pulse Resp B/P B/P Pulse O2 O2 Flow FiO2 Mean Ox Delivery Rate 10/20 0849 70 110/60 10/20 0650 98.2 71 18 106/58 94 Nasal Cannula 10/20 0000 Nasal 0.5L Cannula 10/19 2301 100.0 88 16 96/56 93 Nasal Cannula 10/19 1600 Nasal 0.5L Cannula 10/19 1500 78 98/60 10/19 1431 98.5 78 18 98/60 94 Nasal 0.5L Cannula 10/19 1150 98.4 74 18 98/60 97 10/19 1147 Nasal 0.5L Cannula Intake & Output 10/20 1600 10/20 0800 10/20 0000 Intake Total 600 800 Output Total 350 975 Balance 250 -175 Intake, IV 600 Intake, Oral 800 Output, Urine 350 975 Physical Exam General Appearance: well developed/nourished, no apparent distress Head: atraumatic, normal appearance Ears, Nose, Throat: normal pharynx Neck: normal inspection, supple Cardiovascular: regular rate/rhythm, edema Respiratory: normal breath sounds, chest non-tender Abdomen: normal bowel sounds, soft, non-tender Rectal: normal exam Extremities: normal inspection, normal capillary refill, normal range of motion Neurologic/Psychiatric: no motor/sensory deficits, awake, alert Current Medications: . Results Last 24 Hrs Lab/Ananth Results: . Donnie Parks MD 10/20/17 1253: Attending MD Review Statement Attending Sign Off Attending Cosign Statement: I have: examined this patient, reviewed [facility] EMR data, discussd w/resident/PA/ CHICKEN CATCHER, agreed w/resident/PA/CHICKEN CATCHER. Other Findings: 67F PMH hypertension, breast cancer s/p right mastectomy, nephrolithiasis, history of bilateral knee replacement, admitted to the hospital for right hip replacement. Became hypoxic during surgery to 73%, medicine consulted for hypoxia. CTA chest negative for PE. Patient stabilized and was on room air post-operatively with no breathing complaints. Had some ventricular ectopy lili -operatively that has not recurred. CTA chest showed persistent left SVC, echo did not show shunt. Patient feels a bit lightheaded and weak today, Hgb down to 7.8 from 8.0, will be transfused 1 unit pRBC by surgery. Agree with resident recommendations, will continue to monitor, see resident recommendations for full details.
--- NOTE | 2017-10-20 10:18 | PN- Orthopedic ---
Subjective Subjective: Patient is less short of breath today but dyspneic on exertion. Wean off oxygen at rest. The postoperative hip pain is manageable. No chest pain. Objective Vital Signs and I&Os Vital Signs Date Time Temp Pulse Resp B/P B/P Pulse O2 O2 Flow FiO2 Mean Ox Delivery Rate 10/20 0849 70 110/60 10/20 0650 98.2 71 18 106/58 94 Nasal Cannula 10/20 0000 Nasal 0.5L Cannula 10/19 2301 100.0 88 16 96/56 93 Nasal Cannula 10/19 1600 Nasal 0.5L Cannula 10/19 1500 78 98/60 10/19 1431 98.5 78 18 98/60 94 Nasal 0.5L Cannula 10/19 1150 98.4 74 18 98/60 97 10/19 1147 Nasal 0.5L Cannula Intake & Output 10/20 1600 10/20 0800 10/20 0000 10/19 1600 10/19 0800 10/19 0000 Intake Total 132 202 5827 700 1350 Output Total 350 975 100 200 750 Balance 250 -175 1525 500 600 Intake, IV 600 1025 600 750 Intake, Oral 800 600 100 600 Number 0 0 Bowel Movements Output, Urine 350 975 100 200 750 Physical Exam: Well-developed well-nourished no apparent distress. HEENT: Atraumatic, extraocular motion intact Neck: Supple, no lymphadenopathy Respiratory: No respiratory distress Extremities: No edema RIGHT lower extremity hip dressing in place, Dressing clean dry and intact with minimal bloody staining, dressing changed Incision without erythema, blistering noted medial thigh, intact Mild thigh swelling No signs of infection. No shortening or rotation Hip range of motion is limited and without unexpected pain Neurovascularly intact distally Bilateral calves are supple, nontender. Neuro: Alert and oriented x3 Psych: Mood affect normal, normal memory normal judgment. Skin: Warm and dry, no rash on exposed skin Results Last 48 Hours of Labs: Laboratory Tests 10/20 10/19 0609 0640 Chemistry Sodium (137 - 145 mmol/L) 137 138 Potassium (3.5 - 5.1 mmol/L) 4.0 4.1 Chloride (98 - 107 mmol/L) 104 102 Carbon Dioxide (22 - 30 mmol/L) 28 28 Anion Gap (5 - 16) 5 8 BUN (7 - 17 mg/dL) 17 20 H Creatinine (0.5 - 1.0 mg/dL) 0.9 1.0 Estimated GFR (>60 ml/min) > 60 55 L BUN/Creatinine Ratio (7 - 25 %) 18.9 20.0 Hematology CBC w Diff NO MAN DIFF REQ NO MAN DIFF REQ WBC (4.8 - 10.8 /CUMM) 7.8 10.3 RBC (4.20 - 5.40 /CUMM) 2.63 L 2.70 L Hgb (12.0 - 16.0 G/DL) 7.8 L 8.0 L Hct (37 - 47 %) 23.2 L 23.8 L MCV (81.0 - 99.0 FL) 88.2 87.9 MCH (27.0 - 31.0 PG) 29.7 29.7 RDW (11.5 - 14.5 %) 13.5 13.8 Plt Count (130 - 400 /CUMM) 223 241 MPV (7.4 - 10.4 FL) 7.7 8.1 Gran % (42.2 - 75.2 %) 67.5 75.8 H Lymphocytes % (20.5 - 51.1 %) 21.0 14.6 L Monocytes % (1.7 - 9.3 %) 8.9 9.2 Eosinophils % (0 - 5 %) 2.0 0.2 Basophils % (0.0 - 2.0 %) 0.6 0.2 Absolute Granulocytes (1.4 - 6.5 /CUMM) 5.3 7.8 H Absolute Lymphocytes (1.2 - 3.4 /CUMM) 1.6 1.5 Absolute Monocytes (0.10 - 0.60 /CUMM) 0.7 H 0.9 H Absolute Eosinophils (0.0 - 0.7 /CUMM) 0.2 0 Absolute Basophils (0.0 - 0.2 /CUMM) 0.1 0 PUBS MCHC (33.0 - 37.0 G/DL) 33.6 33.8 10/19 10/18 10/18 0010 1810 1140 Chemistry Sodium (137 - 145 mmol/L) 141 Potassium (3.5 - 5.1 mmol/L) 4.1 3.3 L Chloride (98 - 107 mmol/L) 104 Carbon Dioxide (22 - 30 mmol/L) 26 Anion Gap (5 - 16) 11 BUN (7 - 17 mg/dL) 20 H Creatinine (0.5 - 1.0 mg/dL) 0.8 Estimated GFR (>60 ml/min) > 60 BUN/Creatinine Ratio (7 - 25 %) 25.0 Troponin I (< 0.11 ng/ml) < 0.01 < 0.01 < 0.01 Nmu-P-Plpoismqtyw Pept (<125 pg/mL) 77.3 Hematology CBC w Diff MAN DIFF ORDERED WBC (4.8 - 10.8 /CUMM) 12.5 H RBC (4.20 - 5.40 /CUMM) 3.56 L Hgb (12.0 - 16.0 G/DL) 10.6 L Hct (37 - 47 %) 31.2 L MCV (81.0 - 99.0 FL) 87.7 MCH (27.0 - 31.0 PG) 29.6 RDW (11.5 - 14.5 %) 13.3 Plt Count (130 - 400 /CUMM) 299 MPV (7.4 - 10.4 FL) 7.2 L Gran % (42.2 - 75.2 %) 93.0 H Lymphocytes % (20.5 - 51.1 %) 5.6 L Monocytes % (1.7 - 9.3 %) 1.3 L Eosinophils % (0 - 5 %) 0.1 Basophils % (0.0 - 2.0 %) 0 Absolute Granulocytes (1.4 - 6.5 /CUMM) 11.6 H Segmented Neutrophils (42.2 - 75.2 %) 79 H Band Neutrophils (0.0 - 5.0 %) 11 H Absolute Lymphocytes (1.2 - 3.4 /CUMM) 0.7 L Lymphocytes (20.5 - 51.1 %) 7 L Monocytes (1.7 - 9.3 %) 2 Absolute Monocytes (0.10 - 0.60 /CUMM) 0.2 Absolute Eosinophils (0.0 - 0.7 /CUMM) 0 Basophils (0.0 - 2.0 %) 1 Absolute Basophils (0.0 - 0.2 /CUMM) 0 Platelet Estimate (ADEQUATE) ADEQUATE Hypochromic-Microcytic 2+ Anisocytosis 1+ PUBS MCHC (33.0 - 37.0 G/DL) 33.8 Assessment/Plan Assessment/Plan This is a 67 year-old female POD 2 s/p R THR with acute hypoxia intraoperatively , resolving appreciate cards, pulm, med follow Cont reg diet hct 23, transfuse 1 unit for acute blood loss anemia Cont pain regimen Cont PT, wbat Order pulm fxn test per pulm, bubble test as out pt DVT ppx - alps, lovenox 40 daily Home meds on board repeat h/h tomorrow dressing changed, cont daily dsd. plan for dc tomorrow to snf Core Measures Venous Thromboembolism VTE Risk Factors Surgery No Mechanical VTE Prophylaxis d/t N/A MechProphylax Ordered No VTE Pharm Prophylaxis d/t NA PharmProphylax ordered
[2017-10-20 14:25] VITALS: BP 90/50
--- NOTE | 2017-10-20 15:17 | PN- Cardiology ---
Subjective Subjective: The patient is feeling better. She was ambulatory for short distances with physical therapy today. She is off oxygen and and oxygenating well. Her blood count has dropped and she is to receive a unit of blood. According to the nurse she is having an occasional PVC on the monitor only. Objective Vital Signs and I&Os Vital Signs Date Time Temp Pulse Resp B/P B/P Pulse O2 O2 Flow FiO2 Mean Ox Delivery Rate 10/20 1425 98.0 86 20 90/50 96 Nasal Cannula 10/20 0849 70 110/60 10/20 0800 95 Room Air 10/20 0650 98.2 71 18 106/58 94 Nasal Cannula 10/20 0000 Nasal 0.5L Cannula 10/19 2301 100.0 88 16 96/56 93 Nasal Cannula 10/19 1600 Nasal 0.5L Cannula Intake & Output 10/20 1600 10/20 0800 10/20 0000 10/19 1600 10/19 0800 10/19 0000 Intake Total 633 085 6178 700 1350 Output Total 350 975 100 200 750 Balance 250 -175 1525 500 600 Intake, IV 600 1025 600 750 Intake, Oral 800 600 100 600 Number 0 0 Bowel Movements Output, Urine 350 975 100 200 750 Physical Exam: She is in no distress HEENT exam is normal Chest is clear Heart reveals soft systolic murmur at the base Extremities no edema Current Medications: Current Medications Sig/Kennedy Start time Last Medication Dose Route Stop Time Status Admin Celecoxib 200 MG DAILY 10/18 1000 AC 10/20 PO 0850 Dextrose/Lactated 1,000 ML Q13H 10/18 1345 AC 10/19 Ringer's IV 2000 Docusate Sodium 100 MG DAILY NEEDED PRN 10/18 1345 AC PO Enoxaparin Sodium 40 MG DAILY 10/19 1000 AC 10/20 SC 0850 Furosemide 80 MG DAILY 10/19 1000 AC 10/20 PO 0850 Gabapentin 300 MG AT BEDTIME 10/18 2200 AC 10/19 PO 2144 Losartan Potassium 50 MG DAILY 10/18 1000 AC 10/20 PO 0849 Meclizine HCl 25 MG TID PRN 10/18 1000 AC PO Morphine Sulfate 2 MG Q3P PRN 10/18 1345 AC 10/20 IV 1404 Morphine Sulfate 4 MG Q3P PRN 10/18 1345 AC IV Ondansetron HCl 4 MG Q6P PRN 10/18 1345 AC IV Oxycodone/ 1 TAB Q4P PRN 10/18 1345 AC 10/19 Acetaminophen PO 0943 Oxycodone/ 2 TAB Q4P PRN 10/18 1345 AC 10/20 Acetaminophen PO 0904 Polyethylene Glycol 17 GM DAILY NEEDED PRN 10/18 1345 AC PO Potassium Chloride 20 MEQ DAILY 10/18 1000 AC 10/20 PO 0850 Senna/Docusate Sodium 2 TAB AT BEDTIME NEED.. 10/18 1345 AC PO Results Last 48 Hrs of Labs/Mics: Laboratory Tests 10/20/17 0609: Anion Gap 5, Estimated GFR > 60, BUN/Creatinine Ratio 18.9, CBC w Diff NO MAN DIFF REQ, RBC 2.63 L, MCV 88.2, MCH 29.7, RDW 13.5, MPV 7.7, Gran % 67.5, Lymphocytes % 21.0, Monocytes % 8.9, Eosinophils % 2.0, Basophils % 0.6, Absolute Granulocytes 5.3, Absolute Lymphocytes 1.6, Absolute Monocytes 0.7 H, Absolute Eosinophils 0.2, Absolute Basophils 0.1, PUBS MCHC 33.6 10/19/17 0640: Anion Gap 8, Estimated GFR 55 L, BUN/Creatinine Ratio 20.0, CBC w Diff NO MAN DIFF REQ, RBC 2.70 L, MCV 87.9, MCH 29.7, RDW 13.8, MPV 8.1, Gran % 75.8 H, Lymphocytes % 14.6 L, Monocytes % 9.2, Eosinophils % 0.2, Basophils % 0.2, Absolute Granulocytes 7.8 H, Absolute Lymphocytes 1.5, Absolute Monocytes 0.9 H, Absolute Eosinophils 0, Absolute Basophils 0, PUBS MCHC 33.8 10/19/17 0010: Troponin I < 0.01 10/18/17 1810: Troponin I < 0.01 Recent Imaging Studies: CONCLUSIONS 1. THis was a technically difficult study. 2. MIld aortic sclerosis is present with no valvular stenosis or insufficiency. 3. Mitral leaflet thickening is present with minimal mitral insufficiency and mild left atrial enlargement. 4. A physiologic pericardial effusion is present. 5. The left ventricular chamber size and systolic function appear normal with no resting wall motion abnormalities. 6. The right heart chambers are upper normal in size with minimal pulmonic insufficiency present. The RV systolic pressure was not accurately assessed. 7. The persistent small left sided SVC noted on the CTA chest was not visualized on this examination. In addition, there were no anatomic findings present to suggest the possibility of a significant shunt. A followup echocardiogram or CRISSY with agitated saline contrast injected via the left antecubital or a cardiac MRI would be useful to better assess for any significant right to left shunt at the level of the left superior pulmonary vein or left atrial appendage as suggested by the CT. Melissa Rodríguez M.D. (Electronically Signed) Final Date: 19 October 2017 14:25 Assessment/Plan Assessment/Plan The patient is doing well from a cardiac standpoint. There does not appear to be any acute cardiac issues. I think the patient can come off the monitor. Any further cardiac workup for shunts etc. can be done as outpatient. Continue telemetry? No
[2017-10-21] VITALS: BP 100/54
[2017-10-21 06:52] VITALS: BP 128/66
[2017-10-21 08:10] LABS: ABSOLUTE BASOPHIL COUNT 0 /CUMM (0.0-0.2); ABSOLUTE EOSINOPHIL COUNT 0.2 /CUMM (0.0-0.7); ABSOLUTE GRANULOCYTE CT 6.3 /CUMM (1.4-6.5); ABSOLUTE LYMPH COUNT 2.2 /CUMM (1.2-3.4); ABSOLUTE MONOCYTE COUNT 0.7 /CUMM (0.10-0.60); BASOPHIL % 0.5 % (0.0-2.0); EOSINOPHIL % 2.2 % (0-5); GRANULOCYTE % 66.8 % (42.2-75.2); HEMATOCRIT 27.4 % (37-47); MEAN CORPUSCULAR HGB CONC 34.1 G/DL (33.0-37.0); MEAN CORPUSCULAR VOLUME 88.1 FL (81.0-99.0); MEAN PLATELET VOLUME 8.1 FL (7.4-10.4); PLATELET COUNT 270 /CUMM (130-400); RBC DISTRIBUTION WIDTH 13.5 % (11.5-14.5); RED BLOOD CELL CT 3.11 /CUMM (4.20-5.40); WHITE BLOOD CELL COUNT 9.5 /CUMM (4.8-10.8)
[2017-10-21 10:44] VITALS: BP 128/66
--- NOTE | 2017-10-21 11:11 | PN- Orthopedic ---
See Addendum Subjective Subjective: Patient feeling better today overall, shortness of breath has improved, dyspnea on exertion is improved, energy level has improved, pain has improved Objective Vital Signs and I&Os Vital Signs Date Time Temp Pulse Resp B/P B/P Pulse O2 O2 Flow FiO2 Mean Ox Delivery Rate 10/21 1044 80 128/66 10/21 0652 98.8 80 20 128/66 94 Nasal Cannula 10/21 0000 98.4 78 20 100/54 95 Room Air 10/20 1425 98.0 86 20 90/50 96 Nasal Cannula Intake & Output 10/21 1600 10/21 0800 10/21 0000 10/20 1600 10/20 0800 10/20 0000 Intake Total 240 340 750 600 800 Output Total 1000 700 350 975 Balance 240 -660 50 250 -175 Intake, IV 150 600 Intake, Oral 240 340 600 800 Output, Urine 1000 700 350 975 Physical Exam: Well-developed well-nourished no apparent distress. HEENT: Atraumatic, extraocular motion intact Neck: Supple, no lymphadenopathy Respiratory: No respiratory distress Extremities: No edema RIGHT lower extremity hip dressing in place, Dressing with mild amount of serous drainage. Likely hematoma noted in the subcutaneous space. No erythema. Incision without erythema Mild thigh swelling No signs of infection. No shortening or rotation Hip range of motion is limited and without unexpected pain Neurovascularly intact distally Bilateral calves are supple, nontender. Neuro: Alert and oriented x3 Psych: Mood affect normal, normal memory normal judgment. Skin: Warm and dry, no rash on exposed skin Results Last 48 Hours of Labs: Laboratory Tests 10/21 10/20 0627 0609 Chemistry Sodium (137 - 145 mmol/L) 137 Potassium (3.5 - 5.1 mmol/L) 4.0 Chloride (98 - 107 mmol/L) 104 Carbon Dioxide (22 - 30 mmol/L) 28 Anion Gap (5 - 16) 5 BUN (7 - 17 mg/dL) 17 Creatinine (0.5 - 1.0 mg/dL) 0.9 Estimated GFR (>60 ml/min) > 60 BUN/Creatinine Ratio (7 - 25 %) 18.9 Hematology CBC w Diff NO MAN DIFF REQ NO MAN DIFF REQ WBC (4.8 - 10.8 /CUMM) 9.5 7.8 RBC (4.20 - 5.40 /CUMM) 3.11 L 2.63 L Hgb (12.0 - 16.0 G/DL) 9.3 L 7.8 L Hct (37 - 47 %) 27.4 L 23.2 L MCV (81.0 - 99.0 FL) 88.1 88.2 MCH (27.0 - 31.0 PG) 30.0 29.7 RDW (11.5 - 14.5 %) 13.5 13.5 Plt Count (130 - 400 /CUMM) 270 223 MPV (7.4 - 10.4 FL) 8.1 7.7 Gran % (42.2 - 75.2 %) 66.8 67.5 Lymphocytes % (20.5 - 51.1 %) 23.0 21.0 Monocytes % (1.7 - 9.3 %) 7.5 8.9 Eosinophils % (0 - 5 %) 2.2 2.0 Basophils % (0.0 - 2.0 %) 0.5 0.6 Absolute Granulocytes (1.4 - 6.5 /CUMM) 6.3 5.3 Absolute Lymphocytes (1.2 - 3.4 /CUMM) 2.2 1.6 Absolute Monocytes (0.10 - 0.60 /CUMM) 0.7 H 0.7 H Absolute Eosinophils (0.0 - 0.7 /CUMM) 0.2 0.2 Absolute Basophils (0.0 - 0.2 /CUMM) 0 0.1 PUBS MCHC (33.0 - 37.0 G/DL) 34.1 33.6 Assessment/Plan Assessment/Plan Postop day 3 status post right total hip arthroplasty. Acute blood loss anemia has resolved Medically she has improved Continue Lovenox for DVT prophylaxis She is stable for discharge to halfway facility for continued physical therapy and rehabilitation today. She'll follow up with orthopedics and cardiology as outpatient She understands and agrees with plan Core Measures Venous Thromboembolism VTE Risk Factors Surgery No Mechanical VTE Prophylaxis d/t N/A MechProphylax Ordered No VTE Pharm Prophylaxis d/t NA PharmProphylax ordered
--- NOTE | 2017-10-21 14:12 | PN- Pulmonary ---
Subjective HPI/Critical Care Issues: Patient feeling better today overall, shortness of breath has improved, dyspnea on exertion is improved, energy level has improved, pain has improved Objective Current Medications: Current Medications Sig/Kennedy Start time Last Medication Dose Route Stop Time Status Admin Celecoxib 200 MG DAILY 10/18 1000 AC 10/21 PO 1043 Dextrose/Lactated 1,000 ML Q13H 10/18 1345 DC 10/19 Ringer's IV 2000 Docusate Sodium 100 MG DAILY NEEDED PRN 10/18 1345 AC PO Enoxaparin Sodium 40 MG DAILY 10/19 1000 AC 10/21 SC 1044 Furosemide 80 MG DAILY 10/19 1000 AC 10/21 PO 1044 Gabapentin 300 MG AT BEDTIME 10/18 2200 AC 10/20 PO 2123 Losartan Potassium 50 MG DAILY 10/18 1000 AC 10/21 PO 1044 Meclizine HCl 25 MG TID PRN 10/18 1000 AC PO Morphine Sulfate 2 MG Q3P PRN 10/18 1345 AC 10/20 IV 2127 Morphine Sulfate 4 MG Q3P PRN 10/18 1345 AC IV Ondansetron HCl 4 MG Q6P PRN 10/18 1345 AC IV Oxycodone/ 1 TAB Q4P PRN 10/18 1345 AC 10/19 Acetaminophen PO 0943 Oxycodone/ 2 TAB Q4P PRN 10/18 1345 AC 10/20 Acetaminophen PO 0904 Polyethylene Glycol 17 GM DAILY NEEDED PRN 10/18 1345 AC PO Potassium Chloride 20 MEQ DAILY 10/18 1000 AC 10/21 PO 1044 Senna/Docusate Sodium 2 TAB AT BEDTIME NEED.. 10/18 1345 AC PO Vital Signs & I&O Last 24 Hrs of Vitals and I&O: Vital Signs Date Time Temp Pulse Resp B/P B/P Pulse O2 O2 Flow FiO2 Mean Ox Delivery Rate 10/21 1044 80 128/66 10/21 0652 98.8 80 20 128/66 94 Nasal Cannula 10/21 0000 98.4 78 20 100/54 95 Room Air 10/20 1425 98.0 86 20 90/50 96 Nasal Cannula Intake & Output 10/21 1600 10/21 0800 10/21 0000 Intake Total 240 340 Output Total 1000 1000 Balance -1000 240 -660 Intake, Oral 240 340 Output, Urine 1000 1000 Impression/Plan Impression/Plan Impression/Plan: Well-developed well-nourished no apparent distress. HEENT: Atraumatic, extraocular motion intact Neck: Supple, no lymphadenopathy Respiratory: No respiratory distress Extremities: No edema RIGHT lower extremity hip dressing in place, Dressing with mild amount of serous drainage. Likely hematoma noted in the subcutaneous space. No erythema. Incision without erythema Mild thigh swelling No signs of infection. No shortening or rotation Hip range of motion is limited and without unexpected pain Neurovascularly intact distally Bilateral calves are supple, nontender. Neuro: Alert and oriented x3 Psych: Mood affect normal, normal memory normal judgment. 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
== END 2017-10-21 16:20 | DRG 469 ==
LOC: 1NO 04:15 → SDA 04:15 → ENRESERV 10:37 → ENTRNSPT 12:25 → EDTRNSPTSTS 13:01 → EDTRNSPT 13:01 → 1NO 13:35 → CMPTRNSPT 13:38 → ENPENDDIS 10-21 11:08 → 1NO 10-21 16:20
PROVIDERS: Nurse Practitioner; Physician Assistant Surgical
PROC: 0SR904A Replacement of Right Hip Joint with Ceramic on Polyethylene Synthetic Substitute, Uncemented, Open Approach (ICD-10-PCS; principal; 2017-10-18)
PROC: 30233N1 Transfusion of Nonautologous Red Blood Cells into Peripheral Vein, Percutaneous Approach (ICD-10-PCS; 2017-10-20)
DX: M16.11 Unilateral primary osteoarthritis, right hip (principal); J96.91 Respiratory failure, unspecified with hypoxia; I95.9 Hypotension, unspecified; Z68.41 Body mass index [BMI] 40.0-44.9, adult; E66.01 Morbid (severe) obesity due to excess calories; Q89.8 Other specified congenital malformations; D62 Acute posthemorrhagic anemia; I10 Essential (primary) hypertension; E87.6 Hypokalemia; D72.829 Elevated white blood cell count, unspecified; K44.9 Diaphragmatic hernia without obstruction or gangrene; Z85.3 Personal history of malignant neoplasm of breast; Z96.653 Presence of artificial knee joint, bilateral
CPT/HCPCS: 1NSP; 36415; 73501; 82436; 86920; 87086; 93005; 93010; 93306; 97110-GO; 97116-GO; 97161-GP; J1100; J1650; J2405; J3370; J7040; P9016; Q9965